=== PATIENT | female | born 1990 | race Caucasian/White ===

== ENCOUNTER 2020-12-19 15:18 | Emergency (ER) | payer OTHER, MEDICAID, SELFPAY ==
[2020-12-19] VITALS (14 sets, daily range): BP systolic 113–121; BP diastolic 72–84; PULSE 92–115; RESP 18; TEMP 36.8; O2SAT 94–100; BMI 30.4
--- NOTE | 2020-12-19 18:14 | ED_ITS ---
HPI - Psych General Chief Complaint: Psychiatric Symptoms Stated Complaint: FEELING SUICIDAL Time Seen by Provider: 12/19/20 18:05 Source: patient Mode of arrival: Ambulatory History of Present Illness HPI Narrative: 30F nonsmoker with history of Brasher Sarcoma and subsequent chemo, depression, ADHD, adenomyosis with resultant hysterectomy presents with her mother and a chief complaint of suicidal ideation without plan for upwards of a month. She really has not felt well for quite some time, at least 1 month and has had increasing depression, anxiety, poor appetite difficulty sleeping. She has been having troubles with an elevated heart rate for quite some time and recently decided to stop taking her Adderall to see if that would play a role. This was just a few days ago and has not done much to help. She gets dizzy and lightheaded upon standing. She has some nausea but denies any vomiting or diarrhea. She denies any dysuria, frequency or urgency. She is here hoping to get placement for her suicidal thoughts. She was seen and evaluated at [facility] yesterday and had a thorough evaluation and was medically cleared, sent home with encouragement to follow-up. Related Data Allergies Allergy/AdvReac Type Severity Reaction Status Date / Time lorazepam [From Ativan] AdvReac Verified 12/19/20 15:30 Review of Systems Review of Systems Narrative: GENERAL: See HPI HEENT: Denies sinus pain, ear pain, sore throat, difficulty swallowing, dizziness. RESPIRATORY: Denies dyspnea, cough, wheezing, hemoptysis, sputum. CARDIOVASCULAR: See HPI GASTROINTESTINAL: Denies nausea, vomiting, abdominal pain, diarrhea, constipation, melena. : Denies dysuria, frequency, incontinence, hematuria, urinary retention. MUSCULOSKELETAL: denies weakness, joint pain, or bony pain SKIN: Denies rash, skin lesions, or other NEUROLOGIC: Denies weakness, headache, numbness, change in speech, confusion, seizures, incoordination. PSYCHIATRIC: See HPI 12 point review of systems is negative except for those stated above Patient History Social History Smoking Status: Never smoker Smoking Status: Never smoker alcohol intake frequency: holidays/special occasions only Substance Use Type: marijuana Exam Narrative Exam Narrative: GENERAL: [30] year old patient appears stated age. Well- developed patient, in mild distress. HEAD: Atraumatic. Normocephalic. EYES: Pupils equal round and reactive. Extraocular motions intact. No scleral icterus. No injection or drainage. ENT: Nose without bleeding, purulent drainage. Throat without erythema, tonsillar hypertrophy or exudate. Airway patent. NECK: Trachea midline. Non tender CARDIOVASCULAR: Regular rate (90s) and rhythm without murmurs, gallops, or rubs. RESPIRATORY: Clear to auscultation. Breath sounds equal bilaterally. No wheezes, rales, or rhonchi. GASTROINTESTINAL: Abdomen soft, non-tender, nondistended. EXTREMITIES: No edema or joint tenderness. BACK: Nontender without deformity or crepitance. No flank tenderness. NEURO: AOx3. SKIN: No rash or erythema of visible areas Initial Vital Signs Initial Vital Signs: Vital Signs Temperature 98.2 F 12/19/20 15:31 Pulse Rate 115 H 12/19/20 15:31 Respiratory Rate 18 12/19/20 15:31 Blood Pressure 115/81 12/19/20 15:31 Pulse Oximetry 97 12/19/20 15:31 Course Orders Ordered: ED Orders 12/19/20 18:07 EKG-12 Lead Stat 12/19/20 18:08 Consult to INSTRUCTIONAL MEDIA SERVICES TECHNICIAN - Therapeutic Radiologist Urgent 12/19/20 18:20 Urine Drug Screen, Rapid Stat Urine Microscopic Stat 12/19/20 18:23 Complete Blood Count AUTO DIFF Stat Comprehensive Metabolic Panel Stat Ethanol (ETOH) Stat TSH w/ Reflex to FT4 Stat 12/19/20 19:05 COVID19 -Nasal swab/Pre-Proc Stat D Dimer Stat Discontinued Medications Sodium Chloride (Normal Saline 0.9%) 1,000 mls @ 1,000 mls/hr IV BOLUS ONE Stop: 12/19/20 19:51 Last Infusion: 12/19/20 20:23 Dose: 0 mls/hr Documented by: Admin: 12/19/20 19:00 Dose: 1,000 mls/hr Documented by: GINA Quetiapine Fumarate (Quetiapine 25 Mg Tablet) 75 mg PO NOW ONE Stop: 12/19/20 22:08 Last Admin: 12/19/20 22:19 Dose: 75 mg Documented by: MELISA Reevaluation(s) Reevaluation #1: patient has been medically cleared and I share the opinion along with INSTRUCTIONAL MEDIA SERVICES TECHNICIAN that patient is best served to be admitted to inpatient psychiatric facility for ongoing evaluation and stabilization Consultations Consultation #1: GABRIELA has found available bed at [facility] in [place], but not until 1pm tomorrow Vital Signs Vital signs: Vital Signs - 8 hr 12/19/20 18:23 12/19/20 19:57 12/19/20 20:25 Pulse Rate 92 H 97 H 106 H Respiratory Rate 18 Blood Pressure 113/73 119/72 Pulse Oximetry 97 100 98 12/19/20 20:30 12/19/20 21:00 12/19/20 21:30 Pulse Rate 108 H 104 H 101 H Respiratory Rate Blood Pressure 121/84 117/77 113/72 Pulse Oximetry 100 100 97 12/19/20 22:02 12/19/20 22:06 12/19/20 22:21 Pulse Rate 105 H 105 H 113 H Respiratory Rate Blood Pressure 118/74 Pulse Oximetry 94 97 98 12/19/20 22:28 12/19/20 22:30 12/19/20 23:00 Pulse Rate 95 H 100 H Respiratory Rate Blood Pressure 121/78 Pulse Oximetry 97 12/19/20 23:30 12/20/20 00:00 12/20/20 00:30 Pulse Rate 92 H 93 H 91 H Respiratory Rate Blood Pressure 130/73 Pulse Oximetry 97 95 95 12/20/20 01:00 Pulse Rate 89 Respiratory Rate Blood Pressure Pulse Oximetry 97 MDM - Psych Lab Data Result diagrams: 12/19/20 18:23 12/19/20 18:23 Labs: Lab Results 12/19/20 12/19/20 12/19/20 Range/Units 18:20 18:20 18:23 WBC 8.0 (4.5-11.0) X10^3/uL RBC 4.85 (4.0-5.2) X10^6/uL Hgb 14.7 (12.0-16.0) g/dL Hct 43.2 (36-46) % MCV 89.0 (80-100) fL MCH 30.4 (26-34) PG MCHC 34.2 (30-36) % RDW 13.1 (11.6-14.8) % Plt Count 218 (150-400) X10^3/uL Neut % (Auto) 68.4 (50-75) % Lymph % (Auto) 22.1 L (25-40) % [place] % (Auto) 8.1 (3-14) % Eos % (Auto) 0.7 L (2-4) % Baso % (Auto) 0.7 (0-2) % Neut # (Auto) 5500 (0751-1532) /uL Lymph # (Auto) 1800 (3249-8063) /uL [place] # (Auto) 600 (0-900) /uL Eos # (Auto) 100 (0-450) /uL Baso # (Auto) 100 (0-100) /uL D-Dimer (<230) ng/mL Sodium (137-145) mmol/L Potassium (3.4-5.1) mmol/L Chloride (98-107) mmol/L Carbon Dioxide (22-32) mmol/L BUN (7-17) mg/dL Creatinine (0.52-1.04) mg/dL Estimated GFR (>60) mL/min BUN/Creatinine Ratio (6-22) Glucose (70-100) mg/dL Calcium (8.4-10.2) mg/dL Total Bilirubin (0.2-1.3) mg/dL AST (14-36) IU/L ALT (<35) IU/L Alkaline Phosphatase (38-126) U/L Total Protein (6.3-8.2) g/dL Albumin (3.5-5.0) g/dL Globulin (1.7-4.1) g/dL Albumin/Globulin Ratio (1.0-2.8) TSH (0.47-4.68) uIU/mL Urine RBC 0-1/hpf (0-5/HPF) Urine WBC 0-1/hpf (0-5/HPF) Ur Squamous Epith Cells 0-1 /hpf (0-5/HPF) Urine Bacteria Occasional (0-1) (None) Urine Mucus 1+ H (Negative) Ur Culture Indicated? Cult not indicated U Opiates 300ng/mL cut Negative (Negative) Ur Oxycodone Screen Negative (Negative) Urine Methadone Screen Negative (Negative) Ur Barbiturates Screen Negative (Negative) U Tricyclic Antidepress Positive H (Negative) Ur Phencyclidine Scrn Negative (Negative) Ur Amphetamines Screen Negative (Negative) U Methamphetamines Scrn Negative (Negative) Ur MDMA Scrn (Ecstasy) Negative (Negative) U Benzodiazepines Scrn Negative (Negative) Urine Cocaine Screen Negative (Negative) U Marijuana (THC) Screen Negative (Negative) Ethyl Alcohol ( - 10) mg/dL SARS-CoV-2 (PCR) (Negative) 12/19/20 12/19/20 12/19/20 Range/Units 18:23 18:23 19:05 WBC (4.5-11.0) X10^3/uL RBC (4.0-5.2) X10^6/uL Hgb (12.0-16.0) g/dL Hct (36-46) % MCV (80-100) fL MCH (26-34) PG MCHC (30-36) % RDW (11.6-14.8) % Plt Count (150-400) X10^3/uL Neut % (Auto) (50-75) % Lymph % (Auto) (25-40) % [place] % (Auto) (3-14) % Eos % (Auto) (2-4) % Baso % (Auto) (0-2) % Neut # (Auto) (4212-3883) /uL Lymph # (Auto) (6365-6389) /uL [place] # (Auto) (0-900) /uL Eos # (Auto) (0-450) /uL Baso # (Auto) (0-100) /uL D-Dimer < 200 (<230) ng/mL Sodium 140 (137-145) mmol/L Potassium 3.5 (3.4-5.1) mmol/L Chloride 104 (98-107) mmol/L Carbon Dioxide 26 (22-32) mmol/L BUN 14 (7-17) mg/dL Creatinine 0.63 (0.52-1.04) mg/dL Estimated GFR > 60.0 (>60) mL/min BUN/Creatinine Ratio 22.2 H (6-22) Glucose 105 H (70-100) mg/dL Calcium 9.8 (8.4-10.2) mg/dL Total Bilirubin 0.7 (0.2-1.3) mg/dL AST 32 (14-36) IU/L ALT 20 (<35) IU/L Alkaline Phosphatase 59 (38-126) U/L Total Protein 8.7 H (6.3-8.2) g/dL Albumin 5.1 H (3.5-5.0) g/dL Globulin 3.6 (1.7-4.1) g/dL Albumin/Globulin Ratio 1.4 (1.0-2.8) TSH 1.49 (0.47-4.68) uIU/mL Urine RBC (0-5/HPF) Urine WBC (0-5/HPF) Ur Squamous Epith Cells (0-5/HPF) Urine Bacteria (None) Urine Mucus (Negative) Ur Culture Indicated? U Opiates 300ng/mL cut (Negative) Ur Oxycodone Screen (Negative) Urine Methadone Screen (Negative) Ur Barbiturates Screen (Negative) U Tricyclic Antidepress (Negative) Ur Phencyclidine Scrn (Negative) Ur Amphetamines Screen (Negative) U Methamphetamines Scrn (Negative) Ur MDMA Scrn (Ecstasy) (Negative) U Benzodiazepines Scrn (Negative) Urine Cocaine Screen (Negative) U Marijuana (THC) Screen (Negative) Ethyl Alcohol < 10 ( - 10) mg/dL SARS-CoV-2 (PCR) (Negative) 12/19/20 Range/Units 19:05 WBC (4.5-11.0) X10^3/uL RBC (4.0-5.2) X10^6/uL Hgb (12.0-16.0) g/dL Hct (36-46) % MCV (80-100) fL MCH (26-34) PG MCHC (30-36) % RDW (11.6-14.8) % Plt Count (150-400) X10^3/uL Neut % (Auto) (50-75) % Lymph % (Auto) (25-40) % [place] % (Auto) (3-14) % Eos % (Auto) (2-4) % Baso % (Auto) (0-2) % Neut # (Auto) (1191-4399) /uL Lymph # (Auto) (7044-8428) /uL [place] # (Auto) (0-900) /uL Eos # (Auto) (0-450) /uL Baso # (Auto) (0-100) /uL D-Dimer (<230) ng/mL Sodium (137-145) mmol/L Potassium (3.4-5.1) mmol/L Chloride (98-107) mmol/L Carbon Dioxide (22-32) mmol/L BUN (7-17) mg/dL Creatinine (0.52-1.04) mg/dL Estimated GFR (>60) mL/min BUN/Creatinine Ratio (6-22) Glucose (70-100) mg/dL Calcium (8.4-10.2) mg/dL Total Bilirubin (0.2-1.3) mg/dL AST (14-36) IU/L ALT (<35) IU/L Alkaline Phosphatase (38-126) U/L Total Protein (6.3-8.2) g/dL Albumin (3.5-5.0) g/dL Globulin (1.7-4.1) g/dL Albumin/Globulin Ratio (1.0-2.8) TSH (0.47-4.68) uIU/mL Urine RBC (0-5/HPF) Urine WBC (0-5/HPF) Ur Squamous Epith Cells (0-5/HPF) Urine Bacteria (None) Urine Mucus (Negative) Ur Culture Indicated? U Opiates 300ng/mL cut (Negative) Ur Oxycodone Screen (Negative) Urine Methadone Screen (Negative) Ur Barbiturates Screen (Negative) U Tricyclic Antidepress (Negative) Ur Phencyclidine Scrn (Negative) Ur Amphetamines Screen (Negative) U Methamphetamines Scrn (Negative) Ur MDMA Scrn (Ecstasy) (Negative) U Benzodiazepines Scrn (Negative) Urine Cocaine Screen (Negative) U Marijuana (THC) Screen (Negative) Ethyl Alcohol ( - 10) mg/dL SARS-CoV-2 (PCR) Negative (Negative) Point of Care Testing Test Results Negative Urine Dip Bedside Urine Glucose Negative Bedside Urine Bilirubin - Negative Bedside Urine Ketone +++ 80 Urine Specific Weston 1.030 Bedside Urine Occult Blood + Bedside Urine pH 6 Bedside Urine Protein - Negative Bedside Urine Urobilinogen - Negative Bedside Urine Nitrite - Negative Bedside Urine Leukocytes - Negative Esterase Discharge Plan Departure Patient Disposition: Xfer Psychiatric Hosp Clinical Impression: Suicidal ideations Activity Restrictions/Additional Instructions: *Y Referrals: Nehal Zimmer FNP-C [Primary Care Provider] -
[2020-12-19 18:46] LABS: Add Manual Diff / Slide Review NO; Basophils Absolute Auto 100 /uL (0-100); Basophils Percent Auto 0.7 % (0-2); Eosinophils Absolute Auto 100 /uL (0-450); Eosinophils Percent Auto 0.7 % (2-4); Hematocrit 43.2 % (36-46); Hemoglobin 14.7 g/dL (12.0-16.0); Lymphocytes Absolute Auto 1800 /uL (1100-4500); Lymphocytes Percent Auto 22.1 % (25-40); Mean Corpuscular HGB Conc 34.2 % (30-36); Mean Corpuscular Hemoglobin 30.4 PG (26-34); Monocytes Absolute Auto 600 /uL (0-900); Monocytes Percent Auto 8.1 % (3-14); Neutrophils Absolute Auto 5500 /uL (1500-7000); Neutrophils Percent Auto 68.4 % (50-75); Platelet Count 218 X10^3/uL (150-400); Red Blood Cell Count 4.85 X10^6/uL (4.0-5.2); Red Cell Distribution Width 13.1 % (11.6-14.8)
[2020-12-19 18:49] LABS: Alanine Aminotransferase 20 IU/L (<35); Albumin 5.1 g/dL (3.5-5.0); Albumin Globulin Ratio 1.4 (1.0-2.8); Alkaline Phosphatase 59 U/L (38-126); Aspartate Aminotransferase 32 IU/L (14-36); BUN Creatinine Ratio 22.2 (6-22); Bilirubin Total 0.7 mg/dL (0.2-1.3); Blood Urea Nitrogen 14 mg/dL (7-17); Calcium 9.8 mg/dL (8.4-10.2); Carbon Dioxide 26 mmol/L (22-32); Chloride 104 mmol/L (98-107); Estimated Glomerular Filt Rate > 60.0 mL/min (>60); Ethanol (ETOH) < 10 mg/dL; Globulin 3.6 g/dL (1.7-4.1); Glucose 105 mg/dL (70-100); HEMOLYSIS < 15 (0-50); Potassium 3.5 mmol/L (3.4-5.1); Sodium 140 mmol/L (137-145); Total Protein 8.7 g/dL (6.3-8.2)
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
[2020-12-19 18:58] LABS: Ur Creatinine Normal (Normal); Ur Specific Gravity Normal (Normal); Urine Tetrahydrocannabinol Negative (Negative); Urine pH Normal (Normal)
[2020-12-19 18:59] LABS: UR Morphine/Opiate cutoff 300 Negative (Negative); Urine Amphetamines Negative (Negative); Urine Barbiturates Negative (Negative); Urine Benzodiazepines Negative (Negative); Urine Cocaine Negative (Negative); Urine MDMA Negative (Negative); Urine Methadone Negative (Negative); Urine Methamphetamines Negative (Negative); Urine Oxycodone Negative (Negative); Urine Phencyclidine Negative (Negative); Urine Tricyclic Antidepressant Positive (Negative)
[2020-12-19 19:00] LABS: Bacteria Urine Occasional (0-1); Culture Indicated Urine Cult Not Indicated; Mucus Urine 1+ (Negative); RBC Urine 0-1/HPF (0-5/HPF); Squamous Epithelial Cell Urine 0-1 /HPF (0-5/HPF); WBC Urine 0-1/HPF (0-5/HPF)
[2020-12-19] MEDS: SODIUM CHLORIDE 0.9% 1,000 ML 1000 ML IV (19:00)
[2020-12-19 19:34] LABS: COVID19 -Nasal RAPID Negative (Negative)
[2020-12-19 19:35] LABS: D Dimer < 200 ng/mL (<230)
--- NOTE | 2020-12-19 19:56 | CM.SWNOTE ---
Addendum entered by Cheryl Abel 12/19/20 21:00: VICE PRESIDENT DIGITAL STRATEGIST Note Patient was accepted at [facility] [address], accepting Dr. Isabel at 1300 on 12/20/20. WASH OIL PUMP OPERATOR to arrange EMS transportation Nurse to Nurse # [phone]. VICE PRESIDENT DIGITAL STRATEGIST reviews the above with ED provider Dr. Durand who indicates agreement and understanding. Patient and mother indicates agreement and understanding. Plan: Patient to transfer to [facility] for inpatient bed. GABRIELA Bloom Original Note: VICE PRESIDENT DIGITAL STRATEGIST Note VICE PRESIDENT DIGITAL STRATEGIST calls [facility] for voluntary bed census. VICE PRESIDENT DIGITAL STRATEGIST [facility], it is reported that they have one bed but they are currently screening a patient and will contact VICE PRESIDENT DIGITAL STRATEGIST if bed is still available. VICE PRESIDENT DIGITAL STRATEGIST calls [facility] intake, it is reported that they have a bed and will screen patient. VICE PRESIDENT DIGITAL STRATEGIST faxes clinicals. VICE PRESIDENT DIGITAL STRATEGIST calls [facility] intake, it is reported that they have a few beds and can screen patient. VICE PRESIDENT DIGITAL STRATEGIST faxes clinicals. Plan: VICE PRESIDENT DIGITAL STRATEGIST to continue to seek voluntary inpatient bed for patient. GABRIELA Bloom
[2020-12-19 20:19] LABS: TSH w/ Reflex to FT4 1.49 uIU/mL (0.47-4.68)
--- NOTE | 2020-12-19 22:00 | PC.NURSE ---
Pt requested HS meds MD cricket notified and med was given. Pt moved to room 10 so that room can be darker and facilitate a good nights sleep. Reports she is on board with the plan for voluntary transfer to [facility] tomorrow. Denies SI at this time. Mom home for the night.
[2020-12-19] MEDS: QUETIAPINE 25 MG TABLET 75 MG PO (22:19)
[2020-12-20] VITALS (27 sets, daily range): BP systolic 103–137; BP diastolic 60–88; PULSE 70–113; RESP 16–18; TEMP 36.9; O2SAT 95–100
--- NOTE | 2020-12-20 11:29 | PC.NURSE ---
ambulated self to restroom
--- NOTE | 2020-12-20 11:30 | PC.NURSE ---
Patient asked to shower.
[2020-12-20] MEDS: hydrOXYzine pamoate 25 MG CAPSULE PO ×2 (12:27→13:24)
== END 2020-12-20 13:35 ==
PROVIDERS: Emergency Provider Emergency Medicine; PCP Registered Nurse
DX: R45.851 Suicidal ideations (principal); R07.9 Chest pain, unspecified; Z20.822 Contact with and (suspected) exposure to COVID-19
CPT/HCPCS: 80053; 80305; 80320; 81003; 81015; 81025; 84443; 85025; 85379; 87635; 93005; 93010; 96360; 99284; C9803

== ENCOUNTER → 2021-10-15 08:51 | Outpatient (CLI) | payer OTHER, MEDICAID, SELFPAY ==
[2021-10-15 09:25] LABS: Hemoglobin A1C% w Est Avg Glu 4.9 % (4.0-6.0)
[2021-10-15 09:27] LABS: Appearance Urine UA CLEAR; Bilirubin Urine UA NEGATIVE (NEGATIVE); Color Urine UA YELLOW; Glucose Urine UA NEGATIVE (Negative); Ketones Urine UA NEGATIVE (NEGATIVE); Leukocyte Esterase Urine UA NEGATIVE (NEGATIVE); Nitrite Urine UA POSITIVE (Negative); Occult Blood Urine UA NEGATIVE (Negative); Protein Urine UA TRACE (Negative); Specific Gravity Urine UA <=1.005 (1.000-1.035); Urobilinogen Urine UA 0.2 E.U./dL (0.2)
[2021-10-15 09:34] LABS: Amorphous Sediment Urine 1+; Bacteria Urine Few (2-10); Culture Indicated Urine Specimen Cultured; RBC Urine 0-1/HPF (0-5/HPF); Squamous Epithelial Cell Urine 0-1 /HPF (0-5/HPF); WBC Urine 0-1/HPF (0-5/HPF)
== END ==
PROVIDERS: Family Provider Family Medicine; PCP Family Medicine; Referring Provider Family Medicine; Visit Provider Family Medicine
DX: R35.0 Frequency of micturition (principal); R73.9 Hyperglycemia, unspecified; R39.15 Urgency of urination
CPT/HCPCS: 36415; 81001; 83036; 87086

== ENCOUNTER 2021-12-01 07:30 | Outpatient (RCR) | payer OTHER, MEDICAID, SELFPAY ==
--- NOTE | 2021-09-23 13:35 | PT.OIE ---
Current Diagnoses Other chronic pain (09/23/21) Pain in unspecified shoulder (09/23/21) Scoliosis, unspecified (09/23/21) Dorsalgia, unspecified (09/23/21) Abnormal posture (09/23/21) Weakness (09/23/21) Past Medical History (Last Updated 02/04/21 @ 21:55 by Gabbie Stephenson) Abnormal chest xray (~2020) Abnormal Pap smear of cervix (~2010) Acne (~2001) Adenomyosis (~2014) ADHD (~07/2020) Allergies (~2014) Ankle pain (~2008) Anxiety (~1991) Asthma (~2014) Binge eating disorder Cancer of right fibula (~01/2006) Carpal tunnel syndrome Chicken pox (~1996) Chronic back pain (~2003) Chronic bronchitis (~1994) Chronic shoulder pain (~1999) Chronic sinus infection (~2017) Depression (~1992) Endometriosis (~2001) Brasher sarcoma (~02/2005) Foot pain (~2004) Fractures (~2004) GERD (gastroesophageal reflux disease) (~2016) Headache Heart rate fast (~2020) Heavy menstrual period (~2001) History of biopsy (~02/2005) History of gluten sensitivity History of hysterectomy (~10/2019) History of respiratory disorder (~2007) History of surgery (~02/2006) History of urinary incontinence Human papilloma virus (~2010) Hypertension (~2008) Infertility (~2016) Irregular menstrual cycle (~2006) Irritable bowel syndrome (~2016) Nerve pain (~2001) OCD (obsessive compulsive disorder) (~1996) Painful menstrual periods (~2001) Peripheral neuropathy (~2007) PTSD (post-traumatic stress disorder) (~1994) Restless leg syndrome (~2008) Scoliosis (~2020) Seizures (~1992) Status post surgical removal of both fallopian tubes (~12/2017) Tinnitus (~2016) Vertigo (~2019) Sutton teeth removed (~03/2011) Past Surgical History (Last Updated 02/04/21 @ 21:55 by Gabbie Stephenson) Anesthesia History of biopsy (~02/2005) History of hysterectomy (~10/2019) History of surgery (~02/2006) Status post surgical removal of both fallopian tubes (~12/2017) Tumor (~06/2005) [place] teeth removed (~03/2011) Visit Care Team Role Provider Type Davon M Horras, MD Attending Provider Physician Family Provider Primary Care Provider Referring Provider Specialty: Family Practice Address: [address] [place] [address], [facility] Email: [email or web address] Physical Therapy Initial Evaluation PT-OP-A Visit Information Start: 09/22/21 09:38 Freq: Status: Active Protocol: Document 09/23/21 07:26 [facility] (Rec: 09/23/21 08:26 [facility] [id number]) Out-Patient Physical Therapy Visit Information Visit Information Visit Type Initial Evaluation Visit Start Time 07:30 Visit Stop Time 08:15 Total Visit Minutes 45 Visit Number 1 Number of DIRECTOR CHILD Visits 0 PT-OP-B Current Condition Start: 09/22/21 09:38 Freq: Status: Active Protocol: Document 09/23/21 07:26 [facility] (Rec: 09/23/21 08:26 [facility] [id number]) Current Condition History of Current Condition Onset Date high school Current Complaints B scap pain, LB, ant neck pain , abdominal pain History of Current Condition Pt fell while dancing and got a hairline fracture in a ribcage under scap R. She noticed it when lifting wts in high school and it would hurt so transition coach stopped her. It used to radiate into her skull back in 2006, but now just a lot of pain in scap. Pt has done PT for thumb, neck and LB & pelvic floor PT and it has been successful but hasn't done PT for thoracic region. Pt reports it hurts ot lay on either shoulder because she seems to have pain both sides. Pt reprots d/t her PTSD she has dissassociation w/her body . Pt reports she has IBS. She gets HAs when not wearing glasses if reading/on phone or d/t jaw clenching. Dizziness is when sh is not hydrated. Jaw pain is rare. Pt reports when she had her hysterectomy they had to bring in specialists because her bladder was adhered to her uterus. Prior Treatments and Tests PT in other areas Treatment Goals Patient/Caregiver Goals pain reduction, be able to wear a bra comfortably, be able to do dynamic movement w/ o pain, back to working out ( rower, go for walks w/dog, wt lifting, swimming) PT-OP-C Subjective Start: 09/22/21 09:38 Freq: Status: Active Protocol: Document 09/23/21 07:26 [facility] (Rec: 09/23/21 08:26 [facility] [id number]) OP-PT Pain Assessment Location neck pain Pain Location Details ant Pain Aggravating Factors Lifting Other Pain Aggravating Factors sleeping or looking wrong, clench of jaw, pulling LBP Pain Location Details coccyx Frequency Intermittent Variations/Patterns urinary leakage-sitting for too long, sneeze, deep squat Pain Aggravating Factors Lifting Other Pain Aggravating Factors above head lifting, reaching in front, pulling behind Other Pain Alleviating Factors doing old exercises R calf Pain Location Details lat lower leg & lat foot Description Spasm,With Movement Frequency Intermittent Other Pain Aggravating Factors DF w/eversion, heavy pointing of toes Other Pain Alleviating Factors pop my foot back pain Pain Location Details B shoulder blades Intensity 6 Scale Used Numeric (0 - 10) Description Cramping Frequency Frequent Pain Aggravating Factors Standing,Sitting,Lifting Other Pain Aggravating Factors getting into good posture, lay on back and sides, wearing bra Other Pain Alleviating Factors van 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 (Rec: 09/23/21 08:26 [facility] [id number]) Balance Tests Single Limb Standing Single Limb- Right 10 sec w/excessive UE use and deviation of trunk Single Limb- Left 22 sec w/ some UE use and deviation of trunk PT-OP-F Manual Assessment Start: 09/22/21 09:38 Freq: Status: Active Protocol: Document 09/23/21 07:26 [facility] (Rec: 09/23/21 08:26 [facility] [id number]) Manual Assessments Joint Mobility Assessment Joint Mobility Assessment forefoot and rear foot valgus ins tanding, knee valgus B, IR of femur and tiba B, valgus big toe B; equal greater trochanter , right iliac crest higher PT-OP-G Mobility & Gait Start: 09/22/21 09:38 Freq: Status: Active Protocol: Document 09/23/21 07:26 [facility] (Rec: 09/23/21 08:26 [facility] [id number]) OP Gait Assessment Comments Gait Comments rigid w/dec push off B PT-OP-J Posture/Palpation/Skin Start: 09/22/21 09:38 Freq: Status: Active Protocol: Document 09/23/21 07:26 [facility] (Rec: 09/23/21 08:26 [facility] [id number]) Posture Evaluation [facility] Postural Classification System Becca Postural Classifications Posterior/Anterior Vertebral Compression Test 2 Elbow Flexion Test 1 Lumbar Protective Mechanism Left AP 0 Lumbar Protective Mechanism Right AP 0 Lumbar Protective Mechanism Left PA 0 Lumbar Protective Mechanism Right PA 0 PT-OP-K Range of Motion Start: 09/22/21 09:38 Freq: Status: Active Protocol: Document 09/23/21 07:26 [facility] (Rec: 09/23/21 08:26 [facility] [id number]) Cervical Spine Range of Motion Cervical Spine Degrees Flexion 51 Extension 50 Rotation Left 62 Rotation Right 60 Lateral Flexion Left 38 Lateral Flexion Right 39 Lumbar Spine Range of Motion Lumbar Spine Active Percentage Lateral Flexion Left 60 Lateral Flexion Right 60 Comments ext good range but only at TL junciton, limited lumbar flex; 29 deg R, 41 deg L PT-OP-T Assessment and Plan Start: 09/22/21 09:38 Freq: Status: Active Protocol: Document 09/23/21 07:26 [facility] (Rec: 09/23/21 08:26 [facility] [id number]) Physical Therapy Assessment Rehab Potential Rehabilitation Potential Good Evaluation Complexity Number of Personal Factors/Comorbidities 3 or More Number of Body Systems Impaired 4 or More Clinical Presentation at Evaluation Evolving Impairments Impairments Activity Tolerance,Balance, Functional Activities, Functional Mobility,Gait,Pain, Posture,ROM,Soft Tissue Mobility,Strength Goals balance Halfway Goal (LTG) Pt will be able to do SLS 20 sec B w/ arms at side, no hip drop or deviations LTG Duration 12/24/21 pain Short Term Goal (STG) Pt will have dec pain in order to be able to lay in bed comfortably w/use of appropriate propping. STG Duration 11/21/21 Halfway Goal (LTG) Pt will have dec pain in order to wear bra comfortably LTG Duration 12/24/21 activities Short Term Goal (STG) Pt will be able to do typical daily activity dynamic movements w/o inc pain in tspine, cspine, LB, or lower leg pain STG Duration 12/24/21 Sky Line Yarder Goal (LTG) Pt will be able to work out in all ways she is interested ( walking dog, rower, lift and swim) w/o inc pain greater than 2/10. LTG Duration 12/24/21 strength Short Term Goal (STG) Ptw ill be indep w/HEP STG Duration 11/21/21 Halfway Goal (LTG) Pt will score at least 3/5 on LPM and 4/5 on EFT along w/UE and LE MMT at least 5/5 to show improved core strenghta nd stabiltiy in order to improve pt function in order to dec pain. LTG Duration 12/24/21 Assessment Summary Assessment Pt presents w/c/o mult areas of chronic pain w/worst at mid thoracic around R>L scap area with pain also present in neck and LB and R lower leg. She has mult comorbitities including CA w/fibuar removal d/ this in 2005, but is now cancer free, but does have IBS , endrometriosis/Adenomyosis, lg breasts,PTSD, ADHD, hx of ulcers, foot sensativitiesand dpression. She would benefit from skilled PT to work on improvign this pain by imrpoving core activation as pt has poor automatic core engagement & improve scapular stability along w/gait pattern and posture improvements. Physical Therapy Plan Frequency and Duration Frequency of Treatment 1-2x/wk Duration of Treatment 3 months Plan of Care Start Date 09/23/21 Plan of Care End Date 12/24/21 Therapeutic Interventions Therapeutic Interventions Aquatic Therapy,Balance Training,Gait Training,Home Exercise Program,Joint Mobilizations,Manual Therapy, Neuromuscular Re-education, Orthotic/Prosthetic Management ,Patient/Caregiver Education, Self-Care/Home Management,Soft Tissue Mobilization,Taping, Therapeutic Activities, Therapeutic Exercises Modalities Cold Pack/Ice Massage,Electric Stimulation,Hot Packs, Infrared Therapy,Iontophoresis ,Traction- Mechanical, Ultrasound Next Visit Focus/Plan Next Note Type Treatment Note Next Visit Plan supine core exercises, open book, axial elongation, manual to ribs, wall posture, cat/ camel
--- NOTE | 2021-09-23 13:35 | PT.OPPOC ---
Physical, Occupational & Speech Therapy At [facility] Current Diagnoses Other chronic pain (09/23/21) Pain in unspecified shoulder (09/23/21) Scoliosis, unspecified (09/23/21) Dorsalgia, unspecified (09/23/21) Abnormal posture (09/23/21) Weakness (09/23/21) Visit Care Team Role Provider Type Davon Guerrier MD Attending Provider Physician Family Provider Primary Care Provider Referring Provider Specialty: Family Practice Address: [address] [place] [address] Email: [email or web address] Plan Of Care PT-OP-T Assessment and Plan Start: 09/22/21 09:38 Freq: Status: Active Protocol: Document 09/23/21 07:26 [facility] (Rec: 09/23/21 08:26 [facility] [id number]) Physical Therapy Assessment Rehab Potential Rehabilitation Potential Good Evaluation Complexity Number of Personal Factors/Comorbidities 3 or More Number of Body Systems Impaired 4 or More Clinical Presentation at Evaluation Evolving Impairments Impairments Activity Tolerance,Balance, Functional Activities, Functional Mobility,Gait,Pain, Posture,ROM,Soft Tissue Mobility,Strength Goals balance [facility] Goal (LTG) Pt will be able to do SLS 20 sec B w/ arms at side, no hip drop or deviations LTG Duration 12/24/21 pain Short Term Goal (STG) Pt will have dec pain in order to be able to lay in bed comfortably w/use of appropriate propping. STG Duration 11/21/21 [facility] Goal (LTG) Pt will have dec pain in order to wear bra comfortably LTG Duration 12/24/21 activities Short Term Goal (STG) Pt will be able to do typical daily activity dynamic movements w/o inc pain in tspine, cspine, LB, or lower leg pain STG Duration 12/24/21 Finishing Supervisor Goal (LTG) Pt will be able to work out in all ways she is interested ( walking dog, rower, lift and swim) w/o inc pain greater than 2/10. LTG Duration 12/24/21 strength Short Term Goal (STG) Ptw ill be indep w/HEP STG Duration 11/21/21 [facility] Goal (LTG) Pt will score at least 3/5 on LPM and 4/5 on EFT along w/UE and LE MMT at least 5/5 to show improved core strenghta nd stabiltiy in order to improve pt function in order to dec pain. LTG Duration 12/24/21 Assessment Summary Assessment Pt presents w/c/o mult areas of chronic pain w/worst at mid thoracic around R>L scap area with pain also present in neck and LB and R lower leg. She has mult comorbitities including CA w/fibuar removal d/ this in 2005, but is now cancer free, but does have IBS , endrometriosis/Adenomyosis, lg breasts,PTSD, ADHD, hx of ulcers, foot sensativitiesand dpression. She would benefit from skilled PT to work on improvign this pain by imrpoving core activation as pt has poor automatic core engagement & improve scapular stability along w/gait pattern and posture improvements. Physical Therapy Plan Frequency and Duration Frequency of Treatment 1-2x/wk Duration of Treatment 3 months Plan of Care Start Date 09/23/21 Plan of Care End Date 12/24/21 Therapeutic Interventions Therapeutic Interventions Aquatic Therapy,Balance Training,Gait Training,Home Exercise Program,Joint Mobilizations,Manual Therapy, Neuromuscular Re-education, Orthotic/Prosthetic Management ,Patient/Caregiver Education, Self-Care/Home Management,Soft Tissue Mobilization,Taping, Therapeutic Activities, Therapeutic Exercises Modalities Cold Pack/Ice Massage,Electric Stimulation,Hot Packs, Infrared Therapy,Iontophoresis ,Traction- Mechanical, Ultrasound Next Visit Focus/Plan Next Note Type Treatment Note Next Visit Plan supine core exercises, open book, axial elongation, manual to ribs, wall posture, cat/ camel Plan of Care Dates Plan of Care Start Date 09/23/21 Plan of Care End Date 12/24/21 Electronically Signed by: Vannesa Irvin, PT 09/23/21 [id number] If you are in agreement with this Plan of Care, please return a signed and dated copy. I have reviewed this Plan of Care and certify that the skilled therapy services above are required to meet the patient?s needs. Physician Signature Date Printed Name and Credentials Clinical Instructor Signature Printed Name and Credentials
--- NOTE | 2021-09-25 08:18 | PT.OTN ---
Current Diagnoses Other chronic pain (09/25/21) Pain in unspecified shoulder (09/25/21) Scoliosis, unspecified (09/25/21) Dorsalgia, unspecified (09/25/21) Abnormal posture (09/25/21) Weakness (09/25/21) Physical Therapy Treatment Note PT-OP-A Visit Information Start: 09/22/21 09:38 Freq: Status: Active Protocol: Document 09/25/21 07:32 [facility] (Rec: 09/25/21 08:21 SP [id number]) Out-Patient Physical Therapy Visit Information Visit Information Visit Type Treatment Note Visit Start Time 07:32 Visit Stop Time 08:18 Total Visit Minutes 46 Visit Number 2 Number of UROLOGIST PHYSICIAN Visits 1 PT-OP-B Current Condition Start: 09/22/21 09:38 Freq: Status: Active Protocol: Document 09/23/21 07:26 [facility] (Rec: 09/23/21 08:26 [facility] [id number]) Current Condition History of Current Condition Onset Date high school Current Complaints B scap pain, LB, ant neck pain , abdominal pain History of Current Condition Pt fell while dancing and got a hairline fracture in a ribcage under scap R. She noticed it when lifting wts in high school and it would hurt so assistant men's soccer coach stopped her. It used to radiate into her skull back in 2006, but now just a lot of pain in scap. Pt has done PT for thumb, neck and LB & pelvic floor PT and it has been successful but hasn't done PT for thoracic region. Pt reports it hurts ot lay on either shoulder because she seems to have pain both sides. Pt reprots d/t her PTSD she has dissassociation w/her body . Pt reports she has IBS. She gets HAs when not wearing glasses if reading/on phone or d/t jaw clenching. Dizziness is when sh is not hydrated. Jaw pain is rare. Pt reports when she had her hysterectomy they had to bring in specialists because her bladder was adhered to her uterus. Prior Treatments and Tests PT in other areas Treatment Goals Patient/Caregiver Goals pain reduction, be able to wear a bra comfortably, be able to do dynamic movement w/ o pain, back to working out ( rower, go for walks w/dog, wt lifting, swimming) PT-OP-C Subjective Start: 09/22/21 09:38 Freq: Status: Active Protocol: Document 09/25/21 07:32 [facility] (Rec: 09/25/21 08:21 SP [id number]) OP-PT Subjective Patient Comments Patient Comments Pt states sleeps about 6 hrs and more comfortable more on L than R, holds pillow between arms and more comfortable not having pillow between knees. PT-OP-D Balance Start: 09/22/21 09:38 Freq: Status: Active Protocol: Document 09/23/21 07:26 [facility] (Rec: 09/23/21 08:26 [facility] [id number]) Balance Tests Single Limb Standing Single Limb- Right 10 sec w/excessive UE use and deviation of trunk Single Limb- Left 22 sec w/ some UE use and deviation of trunk PT-OP-F Manual Assessment Start: 09/22/21 09:38 Freq: Status: Active Protocol: Document 09/23/21 07:26 [facility] (Rec: 09/23/21 08:26 [facility] [id number]) Manual Assessments Joint Mobility Assessment Joint Mobility Assessment forefoot and rear foot valgus ins tanding, knee valgus B, IR of femur and tiba B, valgus big toe B; equal greater trochanter , right iliac crest higher PT-OP-G Mobility & Gait Start: 09/22/21 09:38 Freq: Status: Active Protocol: Document 09/23/21 07:26 [facility] (Rec: 09/23/21 08:26 [facility] [id number]) OP Gait Assessment Comments Gait Comments rigid w/dec push off B PT-OP-J Posture/Palpation/Skin Start: 09/22/21 09:38 Freq: Status: Active Protocol: Document 09/23/21 07:26 [facility] (Rec: 09/23/21 08:26 [facility] [id number]) Posture Evaluation Becca Postural Classification System Becca Postural Classifications Posterior/Anterior Vertebral Compression Test 2 Elbow Flexion Test 1 Lumbar Protective Mechanism Left AP 0 Lumbar Protective Mechanism Right AP 0 Lumbar Protective Mechanism Left PA 0 Lumbar Protective Mechanism Right PA 0 PT-OP-K Range of Motion Start: 09/22/21 09:38 Freq: Status: Active Protocol: Document 09/23/21 07:26 [facility] (Rec: 09/23/21 08:26 [facility] [id number]) Cervical Spine Range of Motion Cervical Spine Degrees Flexion 51 Extension 50 Rotation Left 62 Rotation Right 60 Lateral Flexion Left 38 Lateral Flexion Right 39 Lumbar Spine Range of Motion Lumbar Spine Active Percentage Lateral Flexion Left 60 Lateral Flexion Right 60 Comments ext good range but only at TL junciton, limited lumbar flex; 29 deg R, 41 deg L PT-OP-Q Treatments Start: 09/22/21 09:38 Freq: Status: Active Protocol: Document 09/25/21 07:32 SP (Rec: 09/25/21 08:21 SP [id number]) Therapeutic Exercises Supine Exercises BKFO Supine Exercise Name added to HEP Side bilateral Resistance TB #2 loop Reps/Minutes 2x10 Comments cued x1 slow pacing con/ecc, little unsteadiness but good form TA june Supine Exercise Name reviewed past HEP- single leg alternating Side bilateral Reps/Minutes 3x5 reps Comments 90/90, good slow brace w/ breath performance Prone Exercises cat/camel, child's pose side bend/tail wag stretch Prone Exercise Name added to HEP- focus more R inferior lateral ribcage Side bilateral Resistance AROM Reps/Minutes 20 s holds for stretch Comments good feedback stretch Sitting Exercises theracane Sitting Exercise Name R QL, intercostal anterolateral/posterlateral 10 -11 Side right Equipment Used theracane MWM: pelvic tilts, trunk rotation Reps/Minutes 3 min Comments good feedback stretch/ STM with trunk rotation Standing Exercises QL stretch Standing Exercise Name added to HEP for carryover at work: sink w/ SB stretch Side bilateral Resistance AROM Equipment Used contact rail/sink Reps/Minutes 20 s holds for stretch x5 Comments good feedback response Manual Therapy Treatment Soft Tissue Mobilization STMs Body Location R Proximal QL, intercostal anterolateral/posterlateral 10 -11 Mobilization Type Myofascial Release,Sustained Pressure,Trigger Point Release Intensity/Depth Moderate Body Position Sidelying Comments supine for anterior, side for posterolateral. Sustained pressure with breath withgood feedback pressure adjustments. Improved ROM into rotation and good understanding apply self w/ Theracane end tx. Self-Care/Home Management Treatment Education Patient Education Home Exercise Program,Pain Management,Posture Other Education Ed sleep positioning w/ use pillows, self STMs/ stretching home, theracane gentle assist MWM. PT-OP-T Assessment and Plan Start: 09/22/21 09:38 Freq: Status: Active Protocol: Document 09/25/21 07:32 SP (Rec: 09/25/21 08:21 SP [id number]) Physical Therapy Assessment Goals balance Sustainability Consultant Goal (LTG) Pt will be able to do SLS 20 sec B w/ arms at side, no hip drop or deviations LTG Duration 12/24/21 pain Short Term Goal (STG) Pt will have dec pain in order to be able to lay in bed comfortably w/use of appropriate propping. STG Duration 11/21/21 Retirement Goal (LTG) Pt will have dec pain in order to wear bra comfortably LTG Duration 12/24/21 activities Short Term Goal (STG) Pt will be able to do typical daily activity dynamic movements w/o inc pain in tspine, cspine, LB, or lower leg pain STG Duration 12/24/21 Sustainability Consultant Goal (LTG) Pt will be able to work out in all ways she is interested ( walking dog, rower, lift and swim) w/o inc pain greater than 2/10. LTG Duration 12/24/21 strength Short Term Goal (STG) Ptw ill be indep w/HEP STG Duration 11/21/21 Retirement Goal (LTG) Pt will score at least 3/5 on LPM and 4/5 on EFT along w/UE and LE MMT at least 5/5 to show improved core strenghta nd stabiltiy in order to improve pt function in order to dec pain. LTG Duration 12/24/21 Assessment Summary Assessment Pt improved decrease muscle tension R QL and intercostal post manual, self STMs using theracane and MWM. Good understanding and review of past HEP can still help stretch this region. Good TA facilitation, cued slow pacing LE mobility. Physical Therapy Plan Frequency and Duration Frequency of Treatment 1-2x/wk Duration of Treatment 3 months Plan of Care Start Date 09/23/21 Plan of Care End Date 12/24/21 Therapeutic Interventions Therapeutic Interventions Aquatic Therapy,Balance Training,Gait Training,Home Exercise Program,Joint Mobilizations,Manual Therapy, Neuromuscular Re-education, Orthotic/Prosthetic Management ,Patient/Caregiver Education, Self-Care/Home Management,Soft Tissue Mobilization,Taping, Therapeutic Activities, Therapeutic Exercises Modalities Cold Pack/Ice Massage,Electric Stimulation,Hot Packs, Infrared Therapy,Iontophoresis ,Traction- Mechanical, Ultrasound Next Visit Focus/Plan Next Note Type Treatment Note Next Visit Plan Assess response to manual and added core and stretching HEP. POC: supine core exercises, open book, axial elongation, manual to ribs, wall posture, cat/camel
--- NOTE | 2021-09-30 10:13 | PT.OTN ---
Current Diagnoses Other chronic pain (09/30/21) Pain in unspecified shoulder (09/30/21) Scoliosis, unspecified (09/30/21) Dorsalgia, unspecified (09/30/21) Abnormal posture (09/30/21) Weakness (09/30/21) Physical Therapy Treatment Note PT-OP-A Visit Information Start: 09/22/21 09:38 Freq: Status: Active Protocol: Document 09/30/21 07:27 [facility] (Rec: 09/30/21 10:13 [facility] [id number]) Out-Patient Physical Therapy Visit Information Visit Information Visit Type Treatment Note Visit Start Time 07:31 Visit Stop Time 08:30 Total Visit Minutes 59 Visit Number 3 Number of PRACTICAL NURSING INSTRUCTOR Visits 0 PT-OP-B Current Condition Start: 09/22/21 09:38 Freq: Status: Active Protocol: Document 09/23/21 07:26 [facility] (Rec: 09/23/21 08:26 [facility] [id number]) Current Condition History of Current Condition Onset Date high school Current Complaints B scap pain, LB, ant neck pain , abdominal pain History of Current Condition Pt fell while dancing and got a hairline fracture in a ribcage under scap R. She noticed it when lifting wts in high school and it would hurt so assistant men's soccer coach stopped her. It used to radiate into her skull back in 2006, but now just a lot of pain in scap. Pt has done PT for thumb, neck and LB & pelvic floor PT and it has been successful but hasn't done PT for thoracic region. Pt reports it hurts ot lay on either shoulder because she seems to have pain both sides. Pt reprots d/t her PTSD she has dissassociation w/her body . Pt reports she has IBS. She gets HAs when not wearing glasses if reading/on phone or d/t jaw clenching. Dizziness is when sh is not hydrated. Jaw pain is rare. Pt reports when she had her hysterectomy they had to bring in specialists because her bladder was adhered to her uterus. Prior Treatments and Tests PT in other areas Treatment Goals Patient/Caregiver Goals pain reduction, be able to wear a bra comfortably, be able to do dynamic movement w/ o pain, back to working out ( rower, go for walks w/dog, wt lifting, swimming) PT-OP-C Subjective Start: 09/22/21 09:38 Freq: Status: Active Protocol: Document 09/30/21 07:27 [facility] (Rec: 09/30/21 10:13 [facility] [id number]) OP-PT Subjective Patient Comments Patient Comments pt reports she didn't feel like stretches did much PT-OP-D Balance Start: 09/22/21 09:38 Freq: Status: Active Protocol: Document 09/23/21 07:26 [facility] (Rec: 09/23/21 08:26 [facility] [id number]) Balance Tests Single Limb Standing Single Limb- Right 10 sec w/excessive UE use and deviation of trunk Single Limb- Left 22 sec w/ some UE use and deviation of trunk PT-OP-F Manual Assessment Start: 09/22/21 09:38 Freq: Status: Active Protocol: Document 09/23/21 07:26 [facility] (Rec: 09/23/21 08:26 [facility] [id number]) Manual Assessments Joint Mobility Assessment Joint Mobility Assessment forefoot and rear foot valgus ins tanding, knee valgus B, IR of femur and tiba B, valgus big toe B; equal greater trochanter , right iliac crest higher PT-OP-G Mobility & Gait Start: 09/22/21 09:38 Freq: Status: Active Protocol: Document 09/23/21 07:26 [facility] (Rec: 09/23/21 08:26 [facility] [id number]) OP Gait Assessment Comments Gait Comments rigid w/dec push off B PT-OP-J Posture/Palpation/Skin Start: 09/22/21 09:38 Freq: Status: Active Protocol: Document 09/23/21 07:26 [facility] (Rec: 09/23/21 08:26 [facility] [id number]) Posture Evaluation Becca Postural Classification System Becca Postural Classifications Posterior/Anterior Vertebral Compression Test 2 Elbow Flexion Test 1 Lumbar Protective Mechanism Left AP 0 Lumbar Protective Mechanism Right AP 0 Lumbar Protective Mechanism Left PA 0 Lumbar Protective Mechanism Right PA 0 PT-OP-K Range of Motion Start: 09/22/21 09:38 Freq: Status: Active Protocol: Document 09/23/21 07:26 [facility] (Rec: 09/23/21 08:26 [facility] [id number]) Cervical Spine Range of Motion Cervical Spine Degrees Flexion 51 Extension 50 Rotation Left 62 Rotation Right 60 Lateral Flexion Left 38 Lateral Flexion Right 39 Lumbar Spine Range of Motion Lumbar Spine Active Percentage Lateral Flexion Left 60 Lateral Flexion Right 60 Comments ext good range but only at TL junciton, limited lumbar flex; 29 deg R, 41 deg L PT-OP-Q Treatments Start: 09/22/21 09:38 Freq: Status: Active Protocol: Document 09/30/21 07:27 [facility] (Rec: 09/30/21 10:13 [facility] [id number]) Therapeutic Exercises Supine Exercises axial elongation Reps/Minutes 3x10 sec BKFO Supine Exercise Name added to HEP Side bilateral Resistance TB #2 loop Reps/Minutes 2x10 Comments cued x1 slow pacing con/ecc, little unsteadiness but good form TA june Supine Exercise Name reviewed past HEP- single leg alternating Side bilateral Reps/Minutes 10 Prone Exercises cat/camel, child's pose side bend/tail wag stretch Prone Exercise Name cat camel w/rocking, stopped tail wags after 2 reps d/t hip pain, CP w/flex Side bilateral Resistance AROM Reps/Minutes 5 min Comments good feedback stretch Sidelying Exercises open book Side bilateral Reps/Minutes 2x30 sec hold Standing Exercises wall posture Standing Exercise Name wall roll up segmentally w/B UE hold Side bilateral Reps/Minutes roll up then 1 min hold QL stretch Standing Exercise Name added to HEP for carryover at work: sink w/ SB stretch Side bilateral Resistance AROM Equipment Used contact rail/sink Reps/Minutes 1 min Comments good feedback response Therapeutic Activity Therapeutic Activity sleep Comments edu for towel under waist when sleeping to support back & discussed poillows to be length of entire legs Manual Therapy Treatment Soft Tissue Mobilization thoracic Body Location R lats, paraspinals Mobilization Type Strumming,Sustained Pressure Intensity/Depth Moderate Body Position Sidelying Comments w/ shoudler flex cervical Body Location R UT/LS Mobilization Type Rolling,Strumming Intensity/Depth Moderate Body Position Sidelying Joint Mobilizations scap Joint R Direction all directions ribs Comments R AP & distraction rib 1-2 R Rib 6 caudal FM PT-OP-T Assessment and Plan Start: 09/22/21 09:38 Freq: Status: Active Protocol: Document 09/30/21 07:27 [facility] (Rec: 09/30/21 10:13 [facility] [id number]) Physical Therapy Assessment Goals balance Longterm Goal (LTG) Pt will be able to do SLS 20 sec B w/ arms at side, no hip drop or deviations LTG Duration 12/24/21 pain Short Term Goal (STG) Pt will have dec pain in order to be able to lay in bed comfortably w/use of appropriate propping. STG Duration 11/21/21 Longterm Goal (LTG) Pt will have dec pain in order to wear bra comfortably LTG Duration 12/24/21 activities Short Term Goal (STG) Pt will be able to do typical daily activity dynamic movements w/o inc pain in tspine, cspine, LB, or lower leg pain STG Duration 12/24/21 Longterm Goal (LTG) Pt will be able to work out in all ways she is interested ( walking dog, rower, lift and swim) w/o inc pain greater than 2/10. LTG Duration 12/24/21 strength Short Term Goal (STG) Ptw ill be indep w/HEP STG Duration 11/21/21 Longterm Goal (LTG) Pt will score at least 3/5 on LPM and 4/5 on EFT along w/UE and LE MMT at least 5/5 to show improved core strenghta nd stabiltiy in order to improve pt function in order to dec pain. LTG Duration 12/24/21 Assessment Summary Assessment Pt required cues and some alterations w/exercises to get more stretch felt. She did require some cues w/core exercises today. She has a lot of ribcage immobility which likely affects her pain significantly. Physical Therapy Plan Frequency and Duration Frequency of Treatment 1-2x/wk Duration of Treatment 3 months Plan of Care Start Date 09/23/21 Plan of Care End Date 12/24/21 Next Visit Focus/Plan Next Note Type Treatment Note Next Visit Plan review exercises, manual for ribcage mobility and look at hip and pelvis mobility; inf glides for ribs 1-3 R
--- NOTE | 2021-10-02 08:25 | PT.OTN ---
Current Diagnoses Other chronic pain (10/02/21) Pain in unspecified shoulder (10/02/21) Scoliosis, unspecified (10/02/21) Dorsalgia, unspecified (10/02/21) Abnormal posture (10/02/21) Weakness (10/02/21) Physical Therapy Treatment Note PT-OP-A Visit Information Start: 09/22/21 09:38 Freq: Status: Active Protocol: Document 10/02/21 07:30 [facility] (Rec: 10/02/21 08:42 [facility] [id number]) Out-Patient Physical Therapy Visit Information Visit Information Visit Type Treatment Note Visit Start Time 07:30 Visit Stop Time 08:25 Total Visit Minutes 55 Visit Number 08/04 Number of HEEL SORTER Visits 1 PT-OP-B Current Condition Start: 09/22/21 09:38 Freq: Status: Active Protocol: Document 09/23/21 07:26 [facility] (Rec: 09/23/21 08:26 [facility] [id number]) Current Condition History of Current Condition Onset Date high school Current Complaints B scap pain, LB, ant neck pain , abdominal pain History of Current Condition Pt fell while dancing and got a hairline fracture in a ribcage under scap R. She noticed it when lifting wts in high school and it would hurt so scrum coach stopped her. It used to radiate into her skull back in 2006, but now just a lot of pain in scap. Pt has done PT for thumb, neck and LB & pelvic floor PT and it has been successful but hasn't done PT for thoracic region. Pt reports it hurts ot lay on either shoulder because she seems to have pain both sides. Pt reprots d/t her PTSD she has dissassociation w/her body . Pt reports she has IBS. She gets HAs when not wearing glasses if reading/on phone or d/t jaw clenching. Dizziness is when sh is not hydrated. Jaw pain is rare. Pt reports when she had her hysterectomy they had to bring in specialists because her bladder was adhered to her uterus. Prior Treatments and Tests PT in other areas Treatment Goals Patient/Caregiver Goals pain reduction, be able to wear a bra comfortably, be able to do dynamic movement w/ o pain, back to working out ( rower, go for walks w/dog, wt lifting, swimming) PT-OP-C Subjective Start: 09/22/21 09:38 Freq: Status: Active Protocol: Document 10/02/21 07:30 [facility] (Rec: 10/02/21 08:42 [facility] [id number]) OP-PT Subjective Patient Comments Patient Comments Pt reports the manual over upper ribs seemed to help alot , wants to revisit. Requested reprinting HEP and giving ones learned last tx for recall/ form at home today. PT-OP-D Balance Start: 09/22/21 09:38 Freq: Status: Active Protocol: Document 09/23/21 07:26 [facility] (Rec: 09/23/21 08:26 [facility] [id number]) Balance Tests Single Limb Standing Single Limb- Right 10 sec w/excessive UE use and deviation of trunk Single Limb- Left 22 sec w/ some UE use and deviation of trunk PT-OP-F Manual Assessment Start: 09/22/21 09:38 Freq: Status: Active Protocol: Document 09/23/21 07:26 [facility] (Rec: 09/23/21 08:26 [facility] [id number]) Manual Assessments Joint Mobility Assessment Joint Mobility Assessment forefoot and rear foot valgus ins tanding, knee valgus B, IR of femur and tiba B, valgus big toe B; equal greater trochanter , right iliac crest higher PT-OP-G Mobility & Gait Start: 09/22/21 09:38 Freq: Status: Active Protocol: Document 09/23/21 07:26 [facility] (Rec: 09/23/21 08:26 [facility] [id number]) OP Gait Assessment Comments Gait Comments rigid w/dec push off B PT-OP-J Posture/Palpation/Skin Start: 09/22/21 09:38 Freq: Status: Active Protocol: Document 09/23/21 07:26 [facility] (Rec: 09/23/21 08:26 [facility] [id number]) Posture Evaluation Becca Postural Classification System Becca Postural Classifications Posterior/Anterior Vertebral Compression Test 2 Elbow Flexion Test 1 Lumbar Protective Mechanism Left AP 0 Lumbar Protective Mechanism Right AP 0 Lumbar Protective Mechanism Left PA 0 Lumbar Protective Mechanism Right PA 0 PT-OP-K Range of Motion Start: 09/22/21 09:38 Freq: Status: Active Protocol: Document 09/23/21 07:26 [facility] (Rec: 09/23/21 08:26 [facility] [id number]) Cervical Spine Range of Motion Cervical Spine Degrees Flexion 51 Extension 50 Rotation Left 62 Rotation Right 60 Lateral Flexion Left 38 Lateral Flexion Right 39 Lumbar Spine Range of Motion Lumbar Spine Active Percentage Lateral Flexion Left 60 Lateral Flexion Right 60 Comments ext good range but only at TL junciton, limited lumbar flex; 29 deg R, 41 deg L PT-OP-Q Treatments Start: 09/22/21 09:38 Freq: Status: Active Protocol: Document 10/02/21 07:30 [facility] (Rec: 10/02/21 08:42 [facility] [id number]) Therapeutic Exercises Supine Exercises axial elongation Supine Exercise Name HEP reviewed Reps/Minutes 3x10 sec Comments good form BKFO Supine Exercise Name reviewed HEP Side bilateral Resistance TB #2>#3 loop Reps/Minutes 2x10 Comments good form TA march Supine Exercise Name reviewed HEP- single leg alternating Side bilateral Reps/Minutes 10 Comments cued maintain LS L pelvis toward table- no hip pop compensation noted Sidelying Exercises open book Side bilateral Reps/Minutes 8 reps hold 3-5 breaths Comments good form, cued slow Sitting Exercises scalene, SCM Sitting Exercise Name stretch: added to HEP Side right Equipment Used manual and strap assist Reps/Minutes 15s x3-5 theracane Sitting Exercise Name R UT, LS, scalene- reviewed HEP Side right Reps/Minutes 3 min Comments MWM head nods/turns/SB Standing Exercises wall posture Standing Exercise Name wall roll up segmentally w/B UE hold Side bilateral Reps/Minutes roll up then 1 min hold QL stretch Standing Exercise Name reviewed HEP for carryover at work: sink w/ SB stretch Side bilateral Resistance AROM Equipment Used contact rail/sink Reps/Minutes 1 min Comments good feedback response Manual Therapy Treatment Soft Tissue Mobilization thoracic Body Location R lats, paraspinals Mobilization Type Strumming,Sustained Pressure Intensity/Depth Moderate Body Position Sidelying Comments w/ shoudler flex cervical Body Location R UT/LS/scalene/ SCM/ subclavius/ L pec superior& proximal Mobilization Type Instrument Assisted,Rolling, Strumming,Sustained Pressure, Other Intensity/Depth Moderate Body Position Sidelying Comments manual and instruction self use of theracane MWM head nod/ turn/breath/scap sup&inf& protract&retraction small gentle slow ROM- good feedback Joint Mobilizations scap Joint R Direction all directions Comments manual and discussion self during open book- slow controlled movement with rib MWM w/ breath end feel ribs Joint Ribs 1-2 inferior glide post STMs Comments sustained pressure MWM with breath Rib 1-2 manual and instruction using theracane PT-OP-R Modalities Start: 09/22/21 09:38 Freq: Status: Active Protocol: Document 09/30/21 07:27 [facility] (Rec: 09/30/21 10:23 [facility] [id number]) Electric Stimulation Electric Stimulation Interferential Current (IFC) Body Location LB Duration (Minutes) 15 Combined With Heat/Cold Hot Pack Comments MHP to cervical & TL PT-OP-T Assessment and Plan Start: 09/22/21 09:38 Freq: Status: Active Protocol: Document 10/02/21 07:30 [facility] (Rec: 10/02/21 08:42 [facility] [id number]) Physical Therapy Assessment Goals balance Copy Reader Goal (LTG) Pt will be able to do SLS 20 sec B w/ arms at side, no hip drop or deviations LTG Duration 12/24/21 pain Short Term Goal (STG) Pt will have dec pain in order to be able to lay in bed comfortably w/use of appropriate propping. STG Duration 11/21/21 Copy Reader Goal (LTG) Pt will have dec pain in order to wear bra comfortably LTG Duration 12/24/21 activities Short Term Goal (STG) Pt will be able to do typical daily activity dynamic movements w/o inc pain in tspine, cspine, LB, or lower leg pain STG Duration 12/24/21 Mcc Goal (LTG) Pt will be able to work out in all ways she is interested ( walking dog, rower, lift and swim) w/o inc pain greater than 2/10. LTG Duration 12/24/21 strength Short Term Goal (STG) Ptw ill be indep w/HEP STG Duration 11/21/21 Mcc Goal (LTG) Pt will score at least 3/5 on LPM and 4/5 on EFT along w/UE and LE MMT at least 5/5 to show improved core strenghta nd stabiltiy in order to improve pt function in order to dec pain. LTG Duration 12/24/21 Assessment Summary Assessment Pt improvement in scalene, SCM releases, gained head/neck AROM into rotation and more relaxed scapular depression positioning. CUed for TA june with diminished L hip pop feeling with tactile feedback. Education on use pillows and incorporating stretching/MWM using theracane at home/ work for carryover. I have more movement now, what am I going to do with it, stated when leaving. Physical Therapy Plan Frequency and Duration Frequency of Treatment 1-2x/wk Duration of Treatment 3 months Plan of Care Start Date 09/23/21 Plan of Care End Date 12/24/21 Therapeutic Interventions Therapeutic Interventions Aquatic Therapy,Balance Training,Gait Training,Home Exercise Program,Joint Mobilizations,Manual Therapy, Neuromuscular Re-education, Orthotic/Prosthetic Management ,Patient/Caregiver Education, Self-Care/Home Management,Soft Tissue Mobilization,Taping, Therapeutic Activities, Therapeutic Exercises Modalities Cold Pack/Ice Massage,Electric Stimulation,Hot Packs, Infrared Therapy,Iontophoresis ,Traction- Mechanical, Ultrasound Next Visit Focus/Plan Next Note Type Treatment Note Next Visit Plan HEP review, next tx incorporate core/ hip abd stabilization standing if tolerated. POC: manual for ribcage mobility and look at hip and pelvis mobility; inf glides for ribs 1-3 R
--- NOTE | 2021-10-07 08:18 | PT.OTN ---
Current Diagnoses Other chronic pain (10/07/21) Pain in unspecified shoulder (10/07/21) Scoliosis, unspecified (10/07/21) Dorsalgia, unspecified (10/07/21) Abnormal posture (10/07/21) Weakness (10/07/21) Physical Therapy Treatment Note PT-OP-A Visit Information Start: 09/22/21 09:38 Freq: Status: Active Protocol: Document 10/07/21 07:29 [facility] (Rec: 10/07/21 08:18 [facility] [id number]) Out-Patient Physical Therapy Visit Information Visit Information Visit Type Treatment Note Visit Start Time 07:31 Visit Stop Time 08:22 Total Visit Minutes 51 Visit Number 09/03 Number of JITNEY DRIVER Visits 0 PT-OP-B Current Condition Start: 09/22/21 09:38 Freq: Status: Active Protocol: Document 09/23/21 07:26 [facility] (Rec: 09/23/21 08:26 [facility] [id number]) Current Condition History of Current Condition Onset Date high school Current Complaints B scap pain, LB, ant neck pain , abdominal pain History of Current Condition Pt fell while dancing and got a hairline fracture in a ribcage under scap R. She noticed it when lifting wts in high school and it would hurt so assistant women's tennis coach stopped her. It used to radiate into her skull back in 2006, but now just a lot of pain in scap. Pt has done PT for thumb, neck and LB & pelvic floor PT and it has been successful but hasn't done PT for thoracic region. Pt reports it hurts ot lay on either shoulder because she seems to have pain both sides. Pt reprots d/t her PTSD she has dissassociation w/her body . Pt reports she has IBS. She gets HAs when not wearing glasses if reading/on phone or d/t jaw clenching. Dizziness is when sh is not hydrated. Jaw pain is rare. Pt reports when she had her hysterectomy they had to bring in specialists because her bladder was adhered to her uterus. Prior Treatments and Tests PT in other areas Treatment Goals Patient/Caregiver Goals pain reduction, be able to wear a bra comfortably, be able to do dynamic movement w/ o pain, back to working out ( rower, go for walks w/dog, wt lifting, swimming) PT-OP-C Subjective Start: 09/22/21 09:38 Freq: Status: Active Protocol: Document 10/07/21 07:29 [facility] (Rec: 10/07/21 08:18 [facility] [id number]) OP-PT Subjective Patient Comments Patient Comments Pt reports she got flared up yesterday in LB and LB is sore . Does not feel like she can do anything standing. PT-OP-D Balance Start: 09/22/21 09:38 Freq: Status: Active Protocol: Document 09/23/21 07:26 [facility] (Rec: 09/23/21 08:26 [facility] [id number]) Balance Tests Single Limb Standing Single Limb- Right 10 sec w/excessive UE use and deviation of trunk Single Limb- Left 22 sec w/ some UE use and deviation of trunk PT-OP-F Manual Assessment Start: 09/22/21 09:38 Freq: Status: Active Protocol: Document 09/23/21 07:26 [facility] (Rec: 09/23/21 08:26 [facility] [id number]) Manual Assessments Joint Mobility Assessment Joint Mobility Assessment forefoot and rear foot valgus ins tanding, knee valgus B, IR of femur and tiba B, valgus big toe B; equal greater trochanter , right iliac crest higher PT-OP-G Mobility & Gait Start: 09/22/21 09:38 Freq: Status: Active Protocol: Document 09/23/21 07:26 [facility] (Rec: 09/23/21 08:26 [facility] [id number]) OP Gait Assessment Comments Gait Comments rigid w/dec push off B PT-OP-J Posture/Palpation/Skin Start: 09/22/21 09:38 Freq: Status: Active Protocol: Document 09/23/21 07:26 [facility] (Rec: 09/23/21 08:26 [facility] [id number]) Posture Evaluation Becca Postural Classification System Becca Postural Classifications Posterior/Anterior Vertebral Compression Test 2 Elbow Flexion Test 1 Lumbar Protective Mechanism Left AP 0 Lumbar Protective Mechanism Right AP 0 Lumbar Protective Mechanism Left PA 0 Lumbar Protective Mechanism Right PA 0 PT-OP-K Range of Motion Start: 09/22/21 09:38 Freq: Status: Active Protocol: Document 09/23/21 07:26 [facility] (Rec: 09/23/21 08:26 [facility] [id number]) Cervical Spine Range of Motion Cervical Spine Degrees Flexion 51 Extension 50 Rotation Left 62 Rotation Right 60 Lateral Flexion Left 38 Lateral Flexion Right 39 Lumbar Spine Range of Motion Lumbar Spine Active Percentage Lateral Flexion Left 60 Lateral Flexion Right 60 Comments ext good range but only at TL junciton, limited lumbar flex; 29 deg R, 41 deg L PT-OP-Q Treatments Start: 09/22/21 09:38 Freq: Status: Active Protocol: Document 10/07/21 07:29 [facility] (Rec: 10/07/21 08:18 [facility] [id number]) Therapeutic Exercises Supine Exercises bridge Supine Exercise Name w/core engagement Side bilateral Reps/Minutes 15 LTR Supine Exercise Name small comfortable range working on core to pull legs back up Side bilateral Reps/Minutes 20 TA june Supine Exercise Name reviewed HEP- single leg alternating Side bilateral Reps/Minutes 10 Comments able to do w/knee in less flex Sidelying Exercises hip abd Side bilateral Manual Therapy Treatment Soft Tissue Mobilization diaphram Body Location R>L Mobilization Type Sustained Pressure Intensity/Depth Moderate Body Position Supine Comments w/deep breathing and LTR thoracic Body Location R>L thoracolumbar paraspinals Mobilization Type Strumming,Sustained Pressure Intensity/Depth Moderate Body Position Prone Joint Mobilizations thoracic Joint UPA R T8-11 ribs Comments distraction post R ribs 9-12 PT-OP-R Modalities Start: 09/22/21 09:38 Freq: Status: Active Protocol: Document 10/07/21 07:29 [facility] (Rec: 10/07/21 08:18 [facility] [id number]) Hot Pack/Cold Pack Treatment Cold Pack Location thoracolumbar Patient Position Hooklying Treatment Duration (minutes) 10 PT-OP-T Assessment and Plan Start: 09/22/21 09:38 Freq: Status: Active Protocol: Document 10/07/21 07:29 [facility] (Rec: 10/07/21 08:18 [facility] [id number]) Physical Therapy Assessment Goals balance Air Bag Buffer Goal (LTG) Pt will be able to do SLS 20 sec B w/ arms at side, no hip drop or deviations LTG Duration 12/24/21 pain Short Term Goal (STG) Pt will have dec pain in order to be able to lay in bed comfortably w/use of appropriate propping. STG Duration 11/21/21 Nursing Home Goal (LTG) Pt will have dec pain in order to wear bra comfortably LTG Duration 12/24/21 activities Short Term Goal (STG) Pt will be able to do typical daily activity dynamic movements w/o inc pain in tspine, cspine, LB, or lower leg pain STG Duration 12/24/21 Nursing Home Goal (LTG) Pt will be able to work out in all ways she is interested ( walking dog, rower, lift and swim) w/o inc pain greater than 2/10. LTG Duration 12/24/21 strength Short Term Goal (STG) Ptw ill be indep w/HEP STG Duration 11/21/21 Air Bag Buffer Goal (LTG) Pt will score at least 3/5 on LPM and 4/5 on EFT along w/UE and LE MMT at least 5/5 to show improved core strenghta nd stabiltiy in order to improve pt function in order to dec pain. LTG Duration 12/24/21 Assessment Summary Assessment Pt had improved LTR w/manual and had improved R ribcage expansion and diaphram engagment w/manual treatment. Pt did well with exercises today and was able to progress to more difficult core exercises w/cueing. Physical Therapy Plan Frequency and Duration Frequency of Treatment 1-2x/wk Duration of Treatment 3 months Plan of Care Start Date 09/23/21 Plan of Care End Date 12/24/21 Next Visit Focus/Plan Next Note Type Treatment Note Next Visit Plan review new exercises, try standing exercises if pt tolerates. manual for ribcage mobility
--- NOTE | 2021-10-09 08:15 | PT.OTN ---
Current Diagnoses Other chronic pain (10/09/21) Pain in unspecified shoulder (10/09/21) Scoliosis, unspecified (10/09/21) Dorsalgia, unspecified (10/09/21) Abnormal posture (10/09/21) Weakness (10/09/21) Physical Therapy Treatment Note PT-OP-A Visit Information Start: 09/22/21 09:38 Freq: Status: Active Protocol: Document 10/09/21 07:33 [facility] (Rec: 10/09/21 08:17 [facility] [id number]) Out-Patient Physical Therapy Visit Information Visit Information Visit Type Treatment Note Visit Start Time 07:33 Visit Stop Time 08:15 Total Visit Minutes 42 Visit Number 10/04 Number of PANEL BUILDER Visits 1 PT-OP-B Current Condition Start: 09/22/21 09:38 Freq: Status: Active Protocol: Document 09/23/21 07:26 [facility] (Rec: 09/23/21 08:26 [facility] [id number]) Current Condition History of Current Condition Onset Date high school Current Complaints B scap pain, LB, ant neck pain , abdominal pain History of Current Condition Pt fell while dancing and got a hairline fracture in a ribcage under scap R. She noticed it when lifting wts in high school and it would hurt so dramatic coach stopped her. It used to radiate into her skull back in 2006, but now just a lot of pain in scap. Pt has done PT for thumb, neck and LB & pelvic floor PT and it has been successful but hasn't done PT for thoracic region. Pt reports it hurts ot lay on either shoulder because she seems to have pain both sides. Pt reprots d/t her PTSD she has dissassociation w/her body . Pt reports she has IBS. She gets HAs when not wearing glasses if reading/on phone or d/t jaw clenching. Dizziness is when sh is not hydrated. Jaw pain is rare. Pt reports when she had her hysterectomy they had to bring in specialists because her bladder was adhered to her uterus. Prior Treatments and Tests PT in other areas Treatment Goals Patient/Caregiver Goals pain reduction, be able to wear a bra comfortably, be able to do dynamic movement w/ o pain, back to working out ( rower, go for walks w/dog, wt lifting, swimming) PT-OP-C Subjective Start: 09/22/21 09:38 Freq: Status: Active Protocol: Document 10/09/21 07:33 [facility] (Rec: 10/09/21 08:17 [facility] [id number]) OP-PT Subjective Patient Comments Patient Comments Pt stated felt better after last Wed with ability to get extra breaths but did feel little dizziness. She has been doing her glut bridge, Her boyfriend helped with some manual yesterday to help but need more. Pt stated has had to modify wall posture seated and laying down due to flare up in back. Got updated xrays at chiropractor with noted bulging discs not sure if contributing to pain unsure. Not sure if can perform standing exercises, will see. PT-OP-D Balance Start: 09/22/21 09:38 Freq: Status: Active Protocol: Document 09/23/21 07:26 [facility] (Rec: 09/23/21 08:26 [facility] [id number]) Balance Tests Single Limb Standing Single Limb- Right 10 sec w/excessive UE use and deviation of trunk Single Limb- Left 22 sec w/ some UE use and deviation of trunk PT-OP-F Manual Assessment Start: 09/22/21 09:38 Freq: Status: Active Protocol: Document 09/23/21 07:26 [facility] (Rec: 09/23/21 08:26 [facility] [id number]) Manual Assessments Joint Mobility Assessment Joint Mobility Assessment forefoot and rear foot valgus ins tanding, knee valgus B, IR of femur and tiba B, valgus big toe B; equal greater trochanter , right iliac crest higher PT-OP-G Mobility & Gait Start: 09/22/21 09:38 Freq: Status: Active Protocol: Document 09/23/21 07:26 [facility] (Rec: 09/23/21 08:26 [facility] [id number]) OP Gait Assessment Comments Gait Comments rigid w/dec push off B PT-OP-J Posture/Palpation/Skin Start: 09/22/21 09:38 Freq: Status: Active Protocol: Document 09/23/21 07:26 [facility] (Rec: 09/23/21 08:26 [facility] [id number]) Posture Evaluation Becca Postural Classification System Becca Postural Classifications Posterior/Anterior Vertebral Compression Test 2 Elbow Flexion Test 1 Lumbar Protective Mechanism Left AP 0 Lumbar Protective Mechanism Right AP 0 Lumbar Protective Mechanism Left PA 0 Lumbar Protective Mechanism Right PA 0 PT-OP-K Range of Motion Start: 09/22/21 09:38 Freq: Status: Active Protocol: Document 09/23/21 07:26 [facility] (Rec: 09/23/21 08:26 [facility] [id number]) Cervical Spine Range of Motion Cervical Spine Degrees Flexion 51 Extension 50 Rotation Left 62 Rotation Right 60 Lateral Flexion Left 38 Lateral Flexion Right 39 Lumbar Spine Range of Motion Lumbar Spine Active Percentage Lateral Flexion Left 60 Lateral Flexion Right 60 Comments ext good range but only at TL junciton, limited lumbar flex; 29 deg R, 41 deg L PT-OP-Q Treatments Start: 09/22/21 09:38 Freq: Status: Active Protocol: Document 10/09/21 07:33 [facility] (Rec: 10/09/21 08:17 [facility] [id number]) Therapeutic Exercises Standing Exercises sit to stands Standing Exercise Name added to HEP Reps/Minutes 2x5 reps Comments cued TA neutral pelvis- good painfree rows Standing Exercise Name added toHEP Side bilateral Resistance TB #1 Reps/Minutes 2x5 reps Comments cued postural alignment wall posture Standing Exercise Name wall roll up segmentally w/B UE hold Side bilateral Reps/Minutes roll up then 20 s hold able to tolerate Comments performed in supine gentle engagement to not flare side/ back Manual Therapy Treatment Soft Tissue Mobilization diaphram Body Location R Mobilization Type Sustained Pressure Intensity/Depth Moderate Body Position Supine Comments w/deep breathing and LTR thoracic Body Location R thoracolumbar paraspinals Mobilization Type Strumming,Sustained Pressure Intensity/Depth Moderate Body Position Sidelying PT-OP-R Modalities Start: 09/22/21 09:38 Freq: Status: Active Protocol: Document 10/07/21 07:29 [facility] (Rec: 10/07/21 08:18 [facility] [id number]) Hot Pack/Cold Pack Treatment Cold Pack Location thoracolumbar Patient Position Hooklying Treatment Duration (minutes) 10 PT-OP-T Assessment and Plan Start: 09/22/21 09:38 Freq: Status: Active Protocol: Document 10/09/21 07:33 [facility] (Rec: 10/09/21 08:17 [facility] [id number]) Physical Therapy Assessment Goals balance Vaccinator Goal (LTG) Pt will be able to do SLS 20 sec B w/ arms at side, no hip drop or deviations LTG Duration 12/24/21 pain Short Term Goal (STG) Pt will have dec pain in order to be able to lay in bed comfortably w/use of appropriate propping. STG Duration 11/21/21 [facility] Goal (LTG) Pt will have dec pain in order to wear bra comfortably LTG Duration 12/24/21 activities Short Term Goal (STG) Pt will be able to do typical daily activity dynamic movements w/o inc pain in tspine, cspine, LB, or lower leg pain STG Duration 12/24/21 [facility] Goal (LTG) Pt will be able to work out in all ways she is interested ( walking dog, rower, lift and swim) w/o inc pain greater than 2/10. LTG Duration 12/24/21 strength Short Term Goal (STG) Ptw ill be indep w/HEP STG Duration 11/21/21 [facility] Goal (LTG) Pt will score at least 3/5 on LPM and 4/5 on EFT along w/UE and LE MMT at least 5/5 to show improved core strenghta nd stabiltiy in order to improve pt function in order to dec pain. LTG Duration 12/24/21 Assessment Summary Assessment Pt responded well to manual and able to progress standing trunk alignment w/ TA during sit<>stands and resisted light wt shld rows without pain. She states does have to self focus to require to maintain posturing. Improved ribcage expansion breaths reports post manual. Physical Therapy Plan Frequency and Duration Frequency of Treatment 1-2x/wk Duration of Treatment 3 months Plan of Care Start Date 09/23/21 Plan of Care End Date 12/24/21 Therapeutic Interventions Therapeutic Interventions Aquatic Therapy,Balance Training,Gait Training,Home Exercise Program,Joint Mobilizations,Manual Therapy, Neuromuscular Re-education, Orthotic/Prosthetic Management ,Patient/Caregiver Education, Self-Care/Home Management,Soft Tissue Mobilization,Taping, Therapeutic Activities, Therapeutic Exercises Modalities Cold Pack/Ice Massage,Electric Stimulation,Hot Packs, Infrared Therapy,Iontophoresis ,Traction- Mechanical, Ultrasound Next Visit Focus/Plan Next Note Type Treatment Note Next Visit Plan Review new STS, shld rows, back to wall posture. Continue to progress: standing exercises if pt tolerates. manual for ribcage mobility
--- NOTE | 2021-10-13 08:16 | PT.OTN ---
Current Diagnoses Other chronic pain (10/13/21) Pain in unspecified shoulder (10/13/21) Scoliosis, unspecified (10/13/21) Dorsalgia, unspecified (10/13/21) Abnormal posture (10/13/21) Weakness (10/13/21) Physical Therapy Treatment Note PT-OP-A Visit Information Start: 09/22/21 09:38 Freq: Status: Active Protocol: Document 10/13/21 07:31 SP (Rec: 10/13/21 08:22 SP [id number]) Out-Patient Physical Therapy Visit Information Visit Information Visit Type Treatment Note Visit Start Time 07:31 Visit Stop Time 08:16 Total Visit Minutes 45 Visit Number 11/03 Number of CHEMIST ENZYMES Visits 2 PT-OP-B Current Condition Start: 09/22/21 09:38 Freq: Status: Active Protocol: Document 09/23/21 07:26 [facility] (Rec: 09/23/21 08:26 [facility] [id number]) Current Condition History of Current Condition Onset Date high school Current Complaints B scap pain, LB, ant neck pain , abdominal pain History of Current Condition Pt fell while dancing and got a hairline fracture in a ribcage under scap R. She noticed it when lifting wts in high school and it would hurt so high school football coach stopped her. It used to radiate into her skull back in 2006, but now just a lot of pain in scap. Pt has done PT for thumb, neck and LB & pelvic floor PT and it has been successful but hasn't done PT for thoracic region. Pt reports it hurts ot lay on either shoulder because she seems to have pain both sides. Pt reprots d/t her PTSD she has dissassociation w/her body . Pt reports she has IBS. She gets HAs when not wearing glasses if reading/on phone or d/t jaw clenching. Dizziness is when sh is not hydrated. Jaw pain is rare. Pt reports when she had her hysterectomy they had to bring in specialists because her bladder was adhered to her uterus. Prior Treatments and Tests PT in other areas Treatment Goals Patient/Caregiver Goals pain reduction, be able to wear a bra comfortably, be able to do dynamic movement w/ o pain, back to working out ( rower, go for walks w/dog, wt lifting, swimming) PT-OP-C Subjective Start: 09/22/21 09:38 Freq: Status: Active Protocol: Document 10/13/21 07:31 SP (Rec: 10/13/21 08:22 SP [id number]) OP-PT Subjective Patient Comments Patient Comments Pt stated the tension in L side slowly releasing. She stated got some pinching with standing rows so decided to just perform stretching over the weekend. She said boyfriend did some manual through pelvis and feel more mobility and bladder. She thinks fighting something and coughed 3 tonsel stones this am. PT-OP-D Balance Start: 09/22/21 09:38 Freq: Status: Active Protocol: Document 09/23/21 07:26 [facility] (Rec: 09/23/21 08:26 [facility] [id number]) Balance Tests Single Limb Standing Single Limb- Right 10 sec w/excessive UE use and deviation of trunk Single Limb- Left 22 sec w/ some UE use and deviation of trunk PT-OP-F Manual Assessment Start: 09/22/21 09:38 Freq: Status: Active Protocol: Document 09/23/21 07:26 [facility] (Rec: 09/23/21 08:26 [facility] [id number]) Manual Assessments Joint Mobility Assessment Joint Mobility Assessment forefoot and rear foot valgus ins tanding, knee valgus B, IR of femur and tiba B, valgus big toe B; equal greater trochanter , right iliac crest higher PT-OP-G Mobility & Gait Start: 09/22/21 09:38 Freq: Status: Active Protocol: Document 09/23/21 07:26 [facility] (Rec: 09/23/21 08:26 [facility] [id number]) OP Gait Assessment Comments Gait Comments rigid w/dec push off B PT-OP-J Posture/Palpation/Skin Start: 09/22/21 09:38 Freq: Status: Active Protocol: Document 09/23/21 07:26 [facility] (Rec: 09/23/21 08:26 [facility] [id number]) Posture Evaluation Becca Postural Classification System Becca Postural Classifications Posterior/Anterior Vertebral Compression Test 2 Elbow Flexion Test 1 Lumbar Protective Mechanism Left AP 0 Lumbar Protective Mechanism Right AP 0 Lumbar Protective Mechanism Left PA 0 Lumbar Protective Mechanism Right PA 0 PT-OP-K Range of Motion Start: 09/22/21 09:38 Freq: Status: Active Protocol: Document 09/23/21 07:26 [facility] (Rec: 09/23/21 08:26 [facility] [id number]) Cervical Spine Range of Motion Cervical Spine Degrees Flexion 51 Extension 50 Rotation Left 62 Rotation Right 60 Lateral Flexion Left 38 Lateral Flexion Right 39 Lumbar Spine Range of Motion Lumbar Spine Active Percentage Lateral Flexion Left 60 Lateral Flexion Right 60 Comments ext good range but only at TL junciton, limited lumbar flex; 29 deg R, 41 deg L PT-OP-Q Treatments Start: 09/22/21 09:38 Freq: Status: Active Protocol: Document 10/13/21 07:31 SP (Rec: 10/13/21 08:22 SP [id number]) Gym Equipment Therapeutic Ball seated Ball Size/Color 65cm Comments 1. pelvic tilts: AP, lateral 2. march Therapeutic Exercises Supine Exercises LTR Supine Exercise Name small comfortable range working on core to pull legs back up Side bilateral Reps/Minutes 5 reps hold 3 sec stretch then x10 TA Comments good feedback response releases TA march Supine Exercise Name reviewed HEP- single leg alternating Side bilateral Reps/Minutes 10 Comments able to do w/knee in less flex Sidelying Exercises open book Side bilateral Reps/Minutes x3 reps with 1-2 breaths end feel range Comments good form, cued slow Standing Exercises sit to stands Standing Exercise Name reviewed HEP Reps/Minutes 2x5 reps Comments cued TA neutral pelvis- good painfree Manual Therapy Treatment Soft Tissue Mobilization diaphram Body Location L>R and QL Mobilization Type Myofascial Release,Sustained Pressure Intensity/Depth Moderate Body Position Supine Comments w/deep breathing and LTR thoracic Body Location L>R thoracolumbar paraspinals Mobilization Type Myofascial Release,Strumming, Sustained Pressure Intensity/Depth Moderate Body Position Sidelying Self-Care/Home Management Treatment Education Patient Education Home Exercise Program,Posture Other Education Discussed review self STMs ball on wall through piriformis at wall and seated self piriformis stretch assist decrease pinching in posterior pelvic region, cued alignment slow lift without compenstations (UEs on ball at side) PT-OP-R Modalities Start: 09/22/21 09:38 Freq: Status: Active Protocol: Document 10/07/21 07:29 [facility] (Rec: 10/07/21 08:18 [facility] [id number]) Hot Pack/Cold Pack Treatment Cold Pack Location thoracolumbar Patient Position Hooklying Treatment Duration (minutes) 10 PT-OP-T Assessment and Plan Start: 09/22/21 09:38 Freq: Status: Active Protocol: Document 10/13/21 07:31 SP (Rec: 10/13/21 08:22 SP [id number]) Physical Therapy Assessment Goals balance Residential Goal (LTG) Pt will be able to do SLS 20 sec B w/ arms at side, no hip drop or deviations LTG Duration 12/24/21 pain Short Term Goal (STG) Pt will have dec pain in order to be able to lay in bed comfortably w/use of appropriate propping. STG Duration 11/21/21 Residential Goal (LTG) Pt will have dec pain in order to wear bra comfortably LTG Duration 12/24/21 activities Short Term Goal (STG) Pt will be able to do typical daily activity dynamic movements w/o inc pain in tspine, cspine, LB, or lower leg pain STG Duration 12/24/21 Residential Goal (LTG) Pt will be able to work out in all ways she is interested ( walking dog, rower, lift and swim) w/o inc pain greater than 2/10. LTG Duration 12/24/21 strength Short Term Goal (STG) Ptw ill be indep w/HEP STG Duration 11/21/21 Residential Goal (LTG) Pt will score at least 3/5 on LPM and 4/5 on EFT along w/UE and LE MMT at least 5/5 to show improved core strenghta nd stabiltiy in order to improve pt function in order to dec pain. LTG Duration 12/24/21 Assessment Summary Assessment Pt improved decrease tightness in lower pelvic and inferior ribcage L>R today post manual and seated Tball pelvic ROM added to HEP. Pt reported feels better and more movement in LS leaving. Discussed continue standing rows if tolerated. Physical Therapy Plan Frequency and Duration Frequency of Treatment 1-2x/wk Duration of Treatment 3 months Plan of Care Start Date 09/23/21 Plan of Care End Date 12/24/21 Therapeutic Interventions Therapeutic Interventions Aquatic Therapy,Balance Training,Gait Training,Home Exercise Program,Joint Mobilizations,Manual Therapy, Neuromuscular Re-education, Orthotic/Prosthetic Management ,Patient/Caregiver Education, Self-Care/Home Management,Soft Tissue Mobilization,Taping, Therapeutic Activities, Therapeutic Exercises Modalities Cold Pack/Ice Massage,Electric Stimulation,Hot Packs, Infrared Therapy,Iontophoresis ,Traction- Mechanical, Ultrasound Next Visit Focus/Plan Next Note Type Treatment Note Next Visit Plan Review new seated pelvic ROM on tball, STS, shld rows, back to wall posture. Continue to progress: standing exercises if pt tolerates. manual for ribcage mobility
--- NOTE | 2021-10-15 15:57 | PT.OTN ---
Current Diagnoses Other chronic pain (10/15/21) Pain in unspecified shoulder (10/15/21) Scoliosis, unspecified (10/15/21) Dorsalgia, unspecified (10/15/21) Abnormal posture (10/15/21) Weakness (10/15/21) Physical Therapy Treatment Note PT-OP-A Visit Information Start: 09/22/21 09:38 Freq: Status: Active Protocol: Document 10/15/21 10:37 [facility] (Rec: 10/15/21 15:49 [facility] [id number]) Out-Patient Physical Therapy Visit Information Visit Information Visit Type Treatment Note Visit Start Time 10:36 Visit Stop Time 11:30 Total Visit Minutes 54 Visit Number 8/ Number of SENIOR AUDIT MANAGER Visits 0 PT-OP-B Current Condition Start: 09/22/21 09:38 Freq: Status: Active Protocol: Document 09/23/21 07:26 [facility] (Rec: 09/23/21 08:26 [facility] [id number]) Current Condition History of Current Condition Onset Date high school Current Complaints B scap pain, LB, ant neck pain , abdominal pain History of Current Condition Pt fell while dancing and got a hairline fracture in a ribcage under scap R. She noticed it when lifting wts in high school and it would hurt so school standards coach stopped her. It used to radiate into her skull back in 2006, but now just a lot of pain in scap. Pt has done PT for thumb, neck and LB & pelvic floor PT and it has been successful but hasn't done PT for thoracic region. Pt reports it hurts ot lay on either shoulder because she seems to have pain both sides. Pt reprots d/t her PTSD she has dissassociation w/her body . Pt reports she has IBS. She gets HAs when not wearing glasses if reading/on phone or d/t jaw clenching. Dizziness is when sh is not hydrated. Jaw pain is rare. Pt reports when she had her hysterectomy they had to bring in specialists because her bladder was adhered to her uterus. Prior Treatments and Tests PT in other areas Treatment Goals Patient/Caregiver Goals pain reduction, be able to wear a bra comfortably, be able to do dynamic movement w/ o pain, back to working out ( rower, go for walks w/dog, wt lifting, swimming) PT-OP-C Subjective Start: 09/22/21 09:38 Freq: Status: Active Protocol: Document 10/15/21 10:37 [facility] (Rec: 10/15/21 15:49 [facility] [id number]) OP-PT Subjective Patient Comments Patient Comments Pt reports mostly pain around lower R scap and TL junction region right now Patient Reported Progress Improving PT-OP-D Balance Start: 09/22/21 09:38 Freq: Status: Active Protocol: Document 09/23/21 07:26 [facility] (Rec: 09/23/21 08:26 [facility] [id number]) Balance Tests Single Limb Standing Single Limb- Right 10 sec w/excessive UE use and deviation of trunk Single Limb- Left 22 sec w/ some UE use and deviation of trunk PT-OP-F Manual Assessment Start: 09/22/21 09:38 Freq: Status: Active Protocol: Document 09/23/21 07:26 [facility] (Rec: 09/23/21 08:26 [facility] [id number]) Manual Assessments Joint Mobility Assessment Joint Mobility Assessment forefoot and rear foot valgus ins tanding, knee valgus B, IR of femur and tiba B, valgus big toe B; equal greater trochanter , right iliac crest higher PT-OP-G Mobility & Gait Start: 09/22/21 09:38 Freq: Status: Active Protocol: Document 09/23/21 07:26 [facility] (Rec: 09/23/21 08:26 [facility] [id number]) OP Gait Assessment Comments Gait Comments rigid w/dec push off B PT-OP-J Posture/Palpation/Skin Start: 09/22/21 09:38 Freq: Status: Active Protocol: Document 09/23/21 07:26 [facility] (Rec: 09/23/21 08:26 [facility] [id number]) Posture Evaluation Becca Postural Classification System Becca Postural Classifications Posterior/Anterior Vertebral Compression Test 2 Elbow Flexion Test 1 Lumbar Protective Mechanism Left AP 0 Lumbar Protective Mechanism Right AP 0 Lumbar Protective Mechanism Left PA 0 Lumbar Protective Mechanism Right PA 0 PT-OP-K Range of Motion Start: 09/22/21 09:38 Freq: Status: Active Protocol: Document 09/23/21 07:26 [facility] (Rec: 09/23/21 08:26 [facility] [id number]) Cervical Spine Range of Motion Cervical Spine Degrees Flexion 51 Extension 50 Rotation Left 62 Rotation Right 60 Lateral Flexion Left 38 Lateral Flexion Right 39 Lumbar Spine Range of Motion Lumbar Spine Active Percentage Lateral Flexion Left 60 Lateral Flexion Right 60 Comments ext good range but only at TL junciton, limited lumbar flex; 29 deg R, 41 deg L PT-OP-Q Treatments Start: 09/22/21 09:38 Freq: Status: Active Protocol: Document 10/15/21 10:37 [facility] (Rec: 10/15/21 15:49 [facility] [id number]) Gym Equipment Therapeutic Ball seated Ball Size/Color 65cm Comments 1. pelvic tilts: AP, lateral 2. march Therapeutic Exercises Standing Exercises sit to stands Standing Exercise Name reviewed HEP Equipment Used yard stick on back Reps/Minutes 10 Comments cued TA neutral pelvis- good painfree rows Standing Exercise Name review HEP Side bilateral Resistance TB #1 Reps/Minutes 15 Comments cued postural alignment wall posture Standing Exercise Name wall roll up segmentally w/B UE hold Side bilateral Reps/Minutes roll up then 20 s hold able to toleratex2 Manual Therapy Treatment Soft Tissue Mobilization STMs Body Location R QL, abdomen, colon Mobilization Type Myofascial Release,Sustained Pressure,Trigger Point Release Intensity/Depth Moderate Body Position Sidelying Joint Mobilizations hip Joint R Direction inf FM Comments dec pinching in SI after manual lumbar Joint L1-3 transverse L FM Grade II ribs Joint rib 11-12 med glide FM Grade II PT-OP-R Modalities Start: 09/22/21 09:38 Freq: Status: Active Protocol: Document 10/15/21 10:37 [facility] (Rec: 10/15/21 15:49 [facility] [id number]) Electric Stimulation Electric Stimulation Interferential Current (IFC) Body Location R lower scap border Duration (Minutes) 15 Combined With Heat/Cold Hot Pack Comments MHP to cervical & TL PT-OP-T Assessment and Plan Start: 09/22/21 09:38 Freq: Status: Active Protocol: Document 10/15/21 10:37 [facility] (Rec: 10/15/21 15:49 [facility] [id number]) Physical Therapy Assessment Goals balance Nursing Home Goal (LTG) Pt will be able to do SLS 20 sec B w/ arms at side, no hip drop or deviations LTG Duration 12/24/21 pain Short Term Goal (STG) Pt will have dec pain in order to be able to lay in bed comfortably w/use of appropriate propping. STG Duration 11/21/21 Collar Trimmer Goal (LTG) Pt will have dec pain in order to wear bra comfortably LTG Duration 12/24/21 activities Short Term Goal (STG) Pt will be able to do typical daily activity dynamic movements w/o inc pain in tspine, cspine, LB, or lower leg pain STG Duration 12/24/21 Nursing Home Goal (LTG) Pt will be able to work out in all ways she is interested ( walking dog, rower, lift and swim) w/o inc pain greater than 2/10. LTG Duration 12/24/21 strength Short Term Goal (STG) Ptw ill be indep w/HEP STG Duration 11/21/21 Nursing Home Goal (LTG) Pt will score at least 3/5 on LPM and 4/5 on EFT along w/UE and LE MMT at least 5/5 to show improved core strenghta nd stabiltiy in order to improve pt function in order to dec pain. LTG Duration 12/24/21 Assessment Summary Assessment Pt had improved movement of pelvis into ant elevation/post dep w/manual treatment. She was able to do all exercises today w/o pain when cued for form. She has a tendency to ext at TL junction as compensation so required more cueing and focus on that area. Physical Therapy Plan Frequency and Duration Frequency of Treatment 1-2x/wk Duration of Treatment 3 months Plan of Care Start Date 09/23/21 Plan of Care End Date 12/24/21 Next Visit Focus/Plan Next Note Type Treatment Note Next Visit Plan give pt hip flexor and glute/ pirofrmis stretches, review exercises from this session
--- NOTE | 2021-12-01 18:46 | PT.OTN ---
Current Diagnoses Other chronic pain (12/01/21) Pain in unspecified shoulder (12/01/21) Scoliosis, unspecified (12/01/21) Dorsalgia, unspecified (12/01/21) Abnormal posture (12/01/21) Weakness (12/01/21) Physical Therapy Treatment Note PT-OP-A Visit Information Start: 09/22/21 09:38 Freq: Status: Active Protocol: Document 12/01/21 07:31 [facility] (Rec: 12/01/21 18:46 [facility] [id number]) Out-Patient Physical Therapy Visit Information Visit Information Visit Type Treatment Note Visit Start Time 07:31 Visit Stop Time 08:15 Total Visit Minutes 44 Visit Number 9 Number of WINDOWS INFRASTRUCTURE ENGINEER Visits 0 PT-OP-B Current Condition Start: 09/22/21 09:38 Freq: Status: Active Protocol: Document 09/23/21 07:26 [facility] (Rec: 09/23/21 08:26 [facility] [id number]) Current Condition History of Current Condition Onset Date high school Current Complaints B scap pain, LB, ant neck pain , abdominal pain History of Current Condition Pt fell while dancing and got a hairline fracture in a ribcage under scap R. She noticed it when lifting wts in high school and it would hurt so transit coach operator stopped her. It used to radiate into her skull back in 2006, but now just a lot of pain in scap. Pt has done PT for thumb, neck and LB & pelvic floor PT and it has been successful but hasn't done PT for thoracic region. Pt reports it hurts ot lay on either shoulder because she seems to have pain both sides. Pt reprots d/t her PTSD she has dissassociation w/her body . Pt reports she has IBS. She gets HAs when not wearing glasses if reading/on phone or d/t jaw clenching. Dizziness is when sh is not hydrated. Jaw pain is rare. Pt reports when she had her hysterectomy they had to bring in specialists because her bladder was adhered to her uterus. Prior Treatments and Tests PT in other areas Treatment Goals Patient/Caregiver Goals pain reduction, be able to wear a bra comfortably, be able to do dynamic movement w/ o pain, back to working out ( rower, go for walks w/dog, wt lifting, swimming) PT-OP-C Subjective Start: 09/22/21 09:38 Freq: Status: Active Protocol: Document 12/01/21 07:31 [facility] (Rec: 12/01/21 18:46 [facility] [id number]) OP-PT Subjective Patient Comments Patient Comments Pt reports improvement overall w/less catching in R ribcage region but did note some last night and worked it out. Notes she is catching R foot often and feels like R ankle/foot is bothering her most currently. Patient Reported Progress Improving PT-OP-D Balance Start: 09/22/21 09:38 Freq: Status: Active Protocol: Document 09/23/21 07:26 [facility] (Rec: 09/23/21 08:26 [facility] [id number]) Balance Tests Single Limb Standing Single Limb- Right 10 sec w/excessive UE use and deviation of trunk Single Limb- Left 22 sec w/ some UE use and deviation of trunk PT-OP-F Manual Assessment Start: 09/22/21 09:38 Freq: Status: Active Protocol: Document 09/23/21 07:26 [facility] (Rec: 09/23/21 08:26 [facility] [id number]) Manual Assessments Joint Mobility Assessment Joint Mobility Assessment forefoot and rear foot valgus ins tanding, knee valgus B, IR of femur and tiba B, valgus big toe B; equal greater trochanter , right iliac crest higher PT-OP-G Mobility & Gait Start: 09/22/21 09:38 Freq: Status: Active Protocol: Document 09/23/21 07:26 [facility] (Rec: 09/23/21 08:26 [facility] [id number]) OP Gait Assessment Comments Gait Comments rigid w/dec push off B PT-OP-J Posture/Palpation/Skin Start: 09/22/21 09:38 Freq: Status: Active Protocol: Document 12/01/21 07:31 [facility] (Rec: 12/01/21 18:46 [facility] [id number]) Posture Evaluation Becca Postural Classification System Elbow Flexion Test 2 Lumbar Protective Mechanism Left AP 1 Lumbar Protective Mechanism Right AP 1 Lumbar Protective Mechanism Left PA 1 Lumbar Protective Mechanism Right PA 1 PT-OP-K Range of Motion Start: 09/22/21 09:38 Freq: Status: Active Protocol: Document 09/23/21 07:26 [facility] (Rec: 09/23/21 08:26 [facility] [id number]) Cervical Spine Range of Motion Cervical Spine Degrees Flexion 51 Extension 50 Rotation Left 62 Rotation Right 60 Lateral Flexion Left 38 Lateral Flexion Right 39 Lumbar Spine Range of Motion Lumbar Spine Active Percentage Lateral Flexion Left 60 Lateral Flexion Right 60 Comments ext good range but only at TL junciton, limited lumbar flex; 29 deg R, 41 deg L PT-OP-M Strength Start: 09/22/21 09:38 Freq: Status: Active Protocol: Document 12/01/21 07:31 [facility] (Rec: 12/01/21 18:46 [facility] [id number]) Shoulder Strength Shoulder Manual Muscle Testing Right Flexion 4+ Good+ Extension 5 Normal Abduction (C5) 5 Normal External Rotation 4+ Good+ Internal Rotation 4+ Good+ Left Flexion 4+ Good+ Extension 5 Normal Abduction (C5) 4+ Good+ External Rotation 4+ Good+ Internal Rotation 4+ Good+ Hip Strength Hip Manual Muscle Testing Right Flexion (L2) 4+ Good+ Extension (S1) 4- Good- Abduction 4 Good Adduction 5 Normal External Rotation 4+ Good+ Internal Rotation 5 Normal Left Flexion (L2) 4+ Good+ Extension (S1) 4- Good- Abduction 4+ Good+ Adduction 5 Normal External Rotation 4+ Good+ Internal Rotation 5 Normal Knee Strength Knee Manual Muscle Testing Right Flexion (S2) 5 Normal Extension (L3) 5 Normal Left Flexion (S2) 5 Normal Extension (L3) 5 Normal Ankle/Foot Strength Ankle and Foot Manual Muscle Testing Right Dorsiflexion (L4) 5 Normal Plantarflexion (S1) 3 Fair Inversion 4 Good Eversion (S1) 4 Good Comments 1 partial heel raise Left Dorsiflexion (L4) 5 Normal Plantarflexion (S1) 3+ Fair+ Inversion 5 Normal Eversion (S1) 5 Normal Comments 5 heel raises PT-OP-Q Treatments Start: 09/22/21 09:38 Freq: Status: Active Protocol: Document 12/01/21 07:31 [facility] (Rec: 12/01/21 18:46 [facility] [id number]) Therapeutic Exercises Supine Exercises bridge Supine Exercise Name w/core engagement & feet on 65cm ball Side bilateral Reps/Minutes 8x5 sec LTR Supine Exercise Name w/ball under feet Side bilateral Reps/Minutes 4 TA june Supine Exercise Name 1June 2. scissor 3. heel slide to SLR Reps/Minutes 5 ea Manual Therapy Treatment Joint Mobilizations foot/ankl Reps/Duration FM Comments calcaneal distraction R calcaneal med & lat glides w/ tilts R talar distraction talar AP tibia AP PT-OP-R Modalities Start: 09/22/21 09:38 Freq: Status: Active Protocol: Document 10/15/21 10:37 [facility] (Rec: 10/15/21 15:49 [facility] [id number]) Electric Stimulation Electric Stimulation Interferential Current (IFC) Body Location R lower scap border Duration (Minutes) 15 Combined With Heat/Cold Hot Pack Comments MHP to cervical & TL PT-OP-T Assessment and Plan Start: 09/22/21 09:38 Freq: Status: Active Protocol: Document 12/01/21 07:31 [facility] (Rec: 12/01/21 18:46 [facility] [id number]) Physical Therapy Assessment Goals balance Loom Cleaner Goal (LTG) Pt will be able to do SLS 20 sec B w/ arms at side, no hip drop or deviations LTG Duration 12/24/21 pain Short Term Goal (STG) Pt will have dec pain in order to be able to lay in bed comfortably w/use of appropriate propping. STG Duration 11/21/21 Loom Cleaner Goal (LTG) Pt will have dec pain in order to wear bra comfortably LTG Duration 12/24/21 activities Short Term Goal (STG) Pt will be able to do typical daily activity dynamic movements w/o inc pain in tspine, cspine, LB, or lower leg pain STG Duration 12/24/21 Custodial Goal (LTG) Pt will be able to work out in all ways she is interested ( walking dog, rower, lift and swim) w/o inc pain greater than 2/10. LTG Duration 12/24/21 strength Short Term Goal (STG) Ptw ill be indep w/HEP STG Duration 11/21/21 Loom Cleaner Goal (LTG) Pt will score at least 3/5 on LPM and 4/5 on EFT along w/UE and LE MMT at least 5/5 to show improved core strenghta nd stabiltiy in order to improve pt function in order to dec pain. LTG Duration 12/24/21 Assessment Summary Assessment Pt is progressing w/strength and is doing well with her current HEP. Notable issues w/ R ankle w/ability to DF so given exercises to focus on this. pt educated on how she has dec talar & tibial mobility which is likely contributing. Noted relief w/ calcaneal distraction saying this is what I feel like I have been wanting to stretch but was unable to. Physical Therapy Plan Frequency and Duration Frequency of Treatment 1-2x/wk Duration of Treatment 3 months Plan of Care Start Date 09/23/21 Plan of Care End Date 12/24/21 Next Visit Focus/Plan Next Note Type Treatment Note Next Visit Plan work on ankle mobility
--- NOTE | 2022-03-31 09:32 | PT.OPDS ---
Current Diagnoses Other chronic pain (12/01/21) Pain in unspecified shoulder (12/01/21) Scoliosis, unspecified (12/01/21) Dorsalgia, unspecified (12/01/21) Abnormal posture (12/01/21) Weakness (12/01/21) Visit Care Team Role Provider Type Davon Guerrier MD Attending Provider Physician Family Provider Primary Care Provider Referring Provider Specialty: Family Practice Address: [address] [place] [address], [facility] Email: [email or web address] Visit Number Visit Number 9 Discharge Summary PT-OP-B Current Condition Start: 09/22/21 09:38 Freq: Status: Active Protocol: Document 09/23/21 07:26 [facility] (Rec: 09/23/21 08:26 [facility] [id number]) Current Condition History of Current Condition Onset Date high school Current Complaints B scap pain, LB, ant neck pain , abdominal pain History of Current Condition Pt fell while dancing and got a hairline fracture in a ribcage under scap R. She noticed it when lifting wts in high school and it would hurt so head field hockey coach stopped her. It used to radiate into her skull back in 2006, but now just a lot of pain in scap. Pt has done PT for thumb, neck and LB & pelvic floor PT and it has been successful but hasn't done PT for thoracic region. Pt reports it hurts ot lay on either shoulder because she seems to have pain both sides. Pt reprots d/t her PTSD she has dissassociation w/her body . Pt reports she has IBS. She gets HAs when not wearing glasses if reading/on phone or d/t jaw clenching. Dizziness is when sh is not hydrated. Jaw pain is rare. Pt reports when she had her hysterectomy they had to bring in specialists because her bladder was adhered to her uterus. Prior Treatments and Tests PT in other areas Treatment Goals Patient/Caregiver Goals pain reduction, be able to wear a bra comfortably, be able to do dynamic movement w/ o pain, back to working out ( rower, go for walks w/dog, wt lifting, swimming) PT-OP-C Subjective Start: 09/22/21 09:38 Freq: Status: Active Protocol: Document 12/01/21 07:31 [facility] (Rec: 12/01/21 18:46 [facility] [id number]) OP-PT Subjective Patient Comments Patient Comments Pt reports improvement overall w/less catching in R ribcage region but did note some last night and worked it out. Notes she is catching R foot often and feels like R ankle/foot is bothering her most currently. Patient Reported Progress Improving PT-OP-D Balance Start: 09/22/21 09:38 Freq: Status: Active Protocol: Document 09/23/21 07:26 [facility] (Rec: 09/23/21 08:26 [facility] [id number]) Balance Tests Single Limb Standing Single Limb- Right 10 sec w/excessive UE use and deviation of trunk Single Limb- Left 22 sec w/ some UE use and deviation of trunk PT-OP-F Manual Assessment Start: 09/22/21 09:38 Freq: Status: Active Protocol: Document 09/23/21 07:26 [facility] (Rec: 09/23/21 08:26 [facility] [id number]) Manual Assessments Joint Mobility Assessment Joint Mobility Assessment forefoot and rear foot valgus ins tanding, knee valgus B, IR of femur and tiba B, valgus big toe B; equal greater trochanter , right iliac crest higher PT-OP-G Mobility & Gait Start: 09/22/21 09:38 Freq: Status: Active Protocol: Document 09/23/21 07:26 [facility] (Rec: 09/23/21 08:26 [facility] [id number]) OP Gait Assessment Comments Gait Comments rigid w/dec push off B PT-OP-J Posture/Palpation/Skin Start: 09/22/21 09:38 Freq: Status: Active Protocol: Document 12/01/21 07:31 [facility] (Rec: 12/01/21 18:46 [facility] [id number]) Posture Evaluation Becca Postural Classification System Elbow Flexion Test 2 Lumbar Protective Mechanism Left AP 1 Lumbar Protective Mechanism Right AP 1 Lumbar Protective Mechanism Left PA 1 Lumbar Protective Mechanism Right PA 1 PT-OP-K Range of Motion Start: 09/22/21 09:38 Freq: Status: Active Protocol: Document 09/23/21 07:26 [facility] (Rec: 09/23/21 08:26 [facility] [id number]) Cervical Spine Range of Motion Cervical Spine Degrees Flexion 51 Extension 50 Rotation Left 62 Rotation Right 60 Lateral Flexion Left 38 Lateral Flexion Right 39 Lumbar Spine Range of Motion Lumbar Spine Active Percentage Lateral Flexion Left 60 Lateral Flexion Right 60 Comments ext good range but only at TL junciton, limited lumbar flex; 29 deg R, 41 deg L PT-OP-M Strength Start: 09/22/21 09:38 Freq: Status: Active Protocol: Document 12/01/21 07:31 [facility] (Rec: 12/01/21 18:46 [facility] [id number]) Shoulder Strength Shoulder Manual Muscle Testing Right Flexion 4+ Good+ Extension 5 Normal Abduction (C5) 5 Normal External Rotation 4+ Good+ Internal Rotation 4+ Good+ Left Flexion 4+ Good+ Extension 5 Normal Abduction (C5) 4+ Good+ External Rotation 4+ Good+ Internal Rotation 4+ Good+ Hip Strength Hip Manual Muscle Testing Right Flexion (L2) 4+ Good+ Extension (S1) 4- Good- Abduction 4 Good Adduction 5 Normal External Rotation 4+ Good+ Internal Rotation 5 Normal Left Flexion (L2) 4+ Good+ Extension (S1) 4- Good- Abduction 4+ Good+ Adduction 5 Normal External Rotation 4+ Good+ Internal Rotation 5 Normal Knee Strength Knee Manual Muscle Testing Right Flexion (S2) 5 Normal Extension (L3) 5 Normal Left Flexion (S2) 5 Normal Extension (L3) 5 Normal Ankle/Foot Strength Ankle and Foot Manual Muscle Testing Right Dorsiflexion (L4) 5 Normal Plantarflexion (S1) 3 Fair Inversion 4 Good Eversion (S1) 4 Good Comments 1 partial heel raise Left Dorsiflexion (L4) 5 Normal Plantarflexion (S1) 3+ Fair+ Inversion 5 Normal Eversion (S1) 5 Normal Comments 5 heel raises PT-OP-T Assessment and Plan Start: 09/22/21 09:38 Freq: Status: Active Protocol: Document 03/31/22 09:29 [facility] (Rec: 03/31/22 09:32 [facility] [id number]) Physical Therapy Assessment Goals balance Rolloff Driver Goal (LTG) Pt will be able to do SLS 20 sec B w/ arms at side, no hip drop or deviations LTG Duration 12/24/21 pain Short Term Goal (STG) Pt will have dec pain in order to be able to lay in bed comfortably w/use of appropriate propping. STG Duration 11/21/21 Rolloff Driver Goal (LTG) Pt will have dec pain in order to wear bra comfortably LTG Duration 12/24/21 activities Short Term Goal (STG) Pt will be able to do typical daily activity dynamic movements w/o inc pain in tspine, cspine, LB, or lower leg pain STG Duration 12/24/21 Correction Goal (LTG) Pt will be able to work out in all ways she is interested ( walking dog, rower, lift and swim) w/o inc pain greater than 2/10. LTG Duration 12/24/21 strength Short Term Goal (STG) Ptw ill be indep w/HEP STG Duration 11/21/21 Correction Goal (LTG) Pt will score at least 3/5 on LPM and 4/5 on EFT along w/UE and LE MMT at least 5/5 to show improved core strenghta nd stabiltiy in order to improve pt function in order to dec pain. LTG Duration 12/24/21 Assessment Summary Assessment Pt last seen 12/01 and cancelled all scheduled appts asking for DC. At this time, DC d/t pt request and no longer attending PT Physical Therapy Plan Discharge Physical Therapy Discharge Reasons Patient Request
== END 2022-04-02 09:24 | disposition home or self-care (01) ==
LOC: PHYS 07:30
PROVIDERS: Family Provider Family Medicine; PCP Family Medicine; Referring Provider Family Medicine; Visit Provider Family Medicine
DX: M25.519 Pain in unspecified shoulder (principal); G89.29 Other chronic pain; M41.9 Scoliosis, unspecified; M54.9 Dorsalgia, unspecified; R53.1 Weakness; R29.3 Abnormal posture
CPT/HCPCS: 97014; 97110; 97140; 97162; G0283

== ENCOUNTER → 2022-08-26 16:08 | Outpatient (CLI) | payer OTHER, SELFPAY ==
[2022-08-26 17:59] LABS: Appearance Urine UA CLEAR; Bilirubin Urine UA NEGATIVE (NEGATIVE); Color Urine UA YELLOW; Glucose Urine UA NEGATIVE (Negative); Ketones Urine UA NEGATIVE (NEGATIVE); Leukocyte Esterase Urine UA NEGATIVE (NEGATIVE); Nitrite Urine UA NEGATIVE (Negative); Occult Blood Urine UA NEGATIVE (Negative); Protein Urine UA NEGATIVE (Negative); Specific Gravity Urine UA <=1.005 (1.000-1.035); Urobilinogen Urine UA 0.2 E.U./dL (0.2)
[2022-08-26 18:13] LABS: RBC Urine 0-1/HPF (0-5/HPF)
[2022-08-26 18:14] LABS: Bacteria Urine None Seen; Culture Indicated Urine Cult Not Indicated; Squamous Epithelial Cell Urine 0-1 /HPF (0-5/HPF); WBC Urine 0-1/HPF (0-5/HPF)
== END ==
PROVIDERS: Family Provider Family Medicine; PCP Family Medicine; Referring Provider Family Medicine; Visit Provider Family Medicine
DX: N39.0 Urinary tract infection, site not specified (principal)
CPT/HCPCS: 81001

== ENCOUNTER → 2022-12-24 06:52 | Outpatient (CLI) | payer OTHER, SELFPAY ==
[2022-12-24 09:14] LABS: Add Manual Diff / Slide Review NO; Basophils Absolute Auto 0 /uL (0-100); Basophils Percent Auto 0.6 % (0-2); Eosinophils Absolute Auto 300 /uL (0-450); Hematocrit 39.6 % (36-46); Hemoglobin 13.7 g/dL (12.0-16.0); Lymphocytes Absolute Auto 2000 /uL (1100-4500); Lymphocytes Percent Auto 30.3 % (25-40); Mean Corpuscular HGB Conc 34.7 % (30-36); Mean Corpuscular Hemoglobin 30.2 PG (26-34); Mean Corpuscular Volume 87.2 fL (80-100); Monocytes Absolute Auto 700 /uL (0-900); Monocytes Percent Auto 10.1 % (3-14); Neutrophils Absolute Auto 3500 /uL (1500-7000); Platelet Count 200 X10^3/uL (150-400); Red Blood Cell Count 4.54 X10^6/uL (4.0-5.2); Red Cell Distribution Width 13.3 % (11.6-14.8); White Blood Cell Count 6.5 X10^3/uL (4.5-11.0)
[2022-12-24 09:34] LABS: Alanine Aminotransferase 30 IU/L (<35); Albumin 4.6 g/dL (3.5-5.0); Albumin Globulin Ratio 1.5 (1.0-2.8); Alkaline Phosphatase 50 U/L (38-126); Aspartate Aminotransferase 37 IU/L (14-36); BUN Creatinine Ratio 13.9 (6-22); Bilirubin Total 0.7 mg/dL (0.2-1.3); Blood Urea Nitrogen 11 mg/dL (7-17); Carbon Dioxide 26 mmol/L (22-32); Chloride 105 mmol/L (98-107); Cholesterol 221 mg/dL (140-199); Estimated Glomerular Filt Rate > 60 mL/min (>60); Glucose 81 mg/dL (70-100); HDL Cholesterol 49 mg/dL (40-60); HEMOLYSIS < 15 (0-50); LDL Cholesterol Calculated 145 mg/dL (<100); Potassium 4.2 mmol/L (3.4-5.1); Sodium 140 mmol/L (137-145); Total Protein 7.6 g/dL (6.3-8.2); Triglycerides 134 mg/dL (35-150)
== END ==
PROVIDERS: Family Provider Family Medicine; PCP Family Medicine; Referring Provider Family Medicine; Visit Provider Family Medicine
DX: F90.0 Attention-deficit hyperactivity disorder, predominantly inattentive type (principal); K21.9 Gastro-esophageal reflux disease without esophagitis; I10 Essential (primary) hypertension
CPT/HCPCS: 36415; 80053; 80061; 85025

== ENCOUNTER → 2023-11-22 15:52 | Outpatient (CLI) | payer OTHER, SELFPAY ==
--- NOTE | 2023-11-22 15:54 | DI.RAD.S_ITS ---
PROCEDURE: XR LUMBAR SPINE MIN 4V INDICATIONS: Low back pain TECHNIQUE: 5 views of the lumbar spine were acquired, including bilateral oblique views. COMPARISON: None. FINDINGS: Bones: 5 nonrib-bearing vertebrae are present. There is multilevel trace retrolisthesis. Minimal to mild disc and foraminal narrowing at L5-S1.. No vertebral body compression fractures. No suspicious bony lesions. Soft tissues: Overlying bowel gas pattern is normal. No suspicious soft tissue calcifications. Oblique images: No pars defects. IMPRESSION: Minimal to mild early degenerative change at L5-S1 Dictated by: Corrina Murray M.D. on 11/22/2023 at 16:40 Approved by: Corrina Murray M.D. on 11/22/2023 at 16:41
== END ==
PROVIDERS: Family Provider Family Medicine; PCP Family Medicine; Referring Provider Physician Assistant; Visit Provider Physician Assistant
DX: M47.817 Spondylosis without myelopathy or radiculopathy, lumbosacral region (principal); M48.07 Spinal stenosis, lumbosacral region; M54.50 Low back pain, unspecified
CPT/HCPCS: 72110

== ENCOUNTER → 2024-11-05 09:55 | Outpatient (CLI) | payer OTHER, SELFPAY ==
[2024-11-05 11:15] LABS: Hemoglobin A1C% w Est Avg Glu 4.7 % (4.0-6.0)
[2024-11-05 11:20] LABS: Add Manual Diff / Slide Review NO; Hematocrit 42.5 % (36-46); Hemoglobin 14.6 g/dL (12.0-16.0); Lymphocytes Absolute Auto 1400 /uL (1100-4500); Mean Corpuscular HGB Conc 34.3 % (30-36); Mean Corpuscular Hemoglobin 30.7 PG (26-34); Mean Corpuscular Volume 89.4 fL (80-100); Platelet Count 206 X10^3/uL (150-400)
[2024-11-05 11:31] LABS: Alanine Aminotransferase 21 IU/L (<35); Albumin 4.7 g/dL (3.5-5.0); Albumin Globulin Ratio 1.7 (1.0-2.8); Alkaline Phosphatase 80 U/L (38-126); Blood Urea Nitrogen 11 mg/dL (7-17); Calcium 9.3 mg/dL (8.4-10.2); Carbon Dioxide 22 mmol/L (22-32); Chloride 105 mmol/L (98-107); Cholesterol 231 mg/dL (140-199); Estimated Glomerular Filt Rate > 60 mL/min (>60); Globulin 2.7 g/dL (1.7-4.1); Glucose 87 mg/dL (70-99); HDL Cholesterol 50 mg/dL (40-60); HEMOLYSIS < 15 (0-50); Potassium 3.8 mmol/L (3.4-5.1); Sodium 138 mmol/L (137-145); Total Protein 7.4 g/dL (6.3-8.2); Triglycerides 141 mg/dL (35-150)
[2024-11-05 11:57] LABS: TSH w/ Reflex to FT4 0.67 uIU/mL (0.47-4.68)
[2024-11-19 06:36] LABS: Percent Free Testosterone 2.37 % (0.50-2.80)
== END ==
PROVIDERS: Family Provider Family Medicine; PCP Family Medicine; Referring Provider Family Medicine; Visit Provider Family Medicine
DX: G47.30 Sleep apnea, unspecified (principal); N92.6 Irregular menstruation, unspecified; I10 Essential (primary) hypertension; F90.9 Attention-deficit hyperactivity disorder, unspecified type; F32.A Depression, unspecified; F41.9 Anxiety disorder, unspecified; R63.5 Abnormal weight gain; F43.10 Post-traumatic stress disorder, unspecified; F90.0 Attention-deficit hyperactivity disorder, predominantly inattentive type; F50.819 Binge eating disorder, unspecified
CPT/HCPCS: 36415; 80053; 80061; 83036; 84402; 84403; 84443; 85025